=== PATIENT | female | born 1925 | race Caucasian/White ===

== ENCOUNTER 2016-05-21 14:29 | Inpatient (IN) | payer MEDICARE, OTHER ==
[2016-05-21] MEDS ORDERED: LEVOFLOXACIN 750MG-D5W PMX 750 MG in DEXTROSE/WATER 1 150ML.BAG IVPB STA (14:49)
[2016-05-21] MEDS ORDERED: SODIUM CHLORIDE 0.9% 1,000 ML IV STA ×2 (14:49)
[2016-05-21] MEDS ORDERED: SODIUM CHLORIDE 0.9% 500 ML IV STA (14:49)
[2016-05-21] MEDS ORDERED: PIPERACILLIN-TAZOBACTAM 3.375 GM in DEXTROSE/WATER 1 50ML.BAG IVPB STA (14:49)
[2016-05-21 15:06] LABS: Basophils % (A) 0 %; CH 32.1; CHCM 31.7; Eosinophils # (A) 0.1 k/uL (0-0.7); Eosinophils % (A) 0 %; HCT 39.2 % (34.0-46.0); HGB 12.5 gm/dL (11.4-16.0); Luc # (Auto) 0.15; Luc % (Auto) 1; Lymphocytes # (A) 0.8 k/uL (1.0-4.8); Lymphocytes % (A) 5 %; MCH 32.5 pg (25.0-35.0); MCHC 31.8 g/dL (31.0-37.0); Macrocytosis Slight; Mean Platelet Volume 7.3; Monocytes # (A) 0.5 k/uL (0-1.0); Monocytes % (A) 4 %; Neutrophils # (A) 14.1 k/uL (1.3-7.7); Neutrophils % (A) 90 %; RBC 3.84 m/uL (3.80-5.40); WBC 15.7 k/uL (3.8-10.6); WBC (Perox) 15.71
[2016-05-21 15:15] LABS: Calcium 9.3 mg/dL (8.4-10.2); Magnesium 2.6 mg/dL (1.6-2.3); Phosphorous 4.6 mg/dL (2.5-4.5); Total Bilirubin 0.5 mg/dL (0.2-1.3); Total Protein 7.3 g/dL (6.3-8.2)
--- NOTE | 2016-05-21 15:22 | XR ---
EXAMINATION TYPE: XR chest 1V portable DATE OF EXAM: 05/21/2016 3:06 PM COMPARISON: 06/02/2013 HISTORY: Weakness confusion TECHNIQUE: Single frontal view of the chest is obtained. FINDINGS: There is coarse interstitial density in both lungs. There is some mild infiltrate at the l eft lung base. There is no gross heart failure. There are no hilar masses. There are chest leads. IMPRESSION: Moderate pulmonary fibrosis. There is new infiltrate in the left lower lobe compared to last exam. No gross heart failure.
[2016-05-21 15:26] LABS: Creatine Kinase 24 U/L (30-135)
[2016-05-21 15:39] LABS: Creatine Kinase MB 1.2 ng/mL (0.0-2.4); Troponin I <0.012 ng/mL (0.000-0.034)
[2016-05-21 15:43] LABS: Appearance,Urine Clear (Clear); Bacteria,Urine Rare /hpf; Bilirubin,Urine Negative (Negative); Glucose,Urine (UA) Negative (Negative); Ketones,Urine Negative (Negative); Leukocyte Esterase,Urine Trace (Negative); Nitrite,Urine Negative (Negative); Particle Count 4843; Protein,Urine Negative (Negative); RBC,Urine 1 /hpf (0-5); Specific Gravity,Urine 1.011 (1.001-1.035); UA Billing (MACRO vs. MICRO) MICRO; Urobilinogen,Urine <2.0 mg/dL (<2.0); WBC,Urine 4 /hpf (0-5)
[2016-05-21 15:51] LABS: Partial Thromboplastin Time 23.6 sec (22.0-30.0); Prothrombin Time 10.4 sec (9.0-12.0)
[2016-05-21] MEDS ORDERED: IPRATROPIUM-ALBUTEROL 3 ML NEB INHALATION STA (16:08)
[2016-05-21] MEDS ORDERED: PNEUMONIA PROTOCOL UTILIZED 1 EACH MISC PO PRN (16:09)
--- NOTE | 2016-05-21 16:09 | ED ---
General Adult HPI - General Chief complaint: Altered Mental Status Stated complaint: ALTERED MENTAL Time Seen by Provider: 05/21/16 14:41 Source: EMS, RN notes reviewed, old records reviewed Mode of arrival: EMS Limitations: no limitations - History of Present Illness Initial comments: This is an 89-year-old female here for evaluation. This patient presents for evaluation of weakness. Fever. Possible sepsis. Patient had outpatient lab work done that shows severely elevated white count. Patient's poor strain secondary medical mentation and dementia, patient is obtained from EMS, labs, patient chart - Related Data Home Medications Medication Instructions Recorded Confirmed Acetaminophen Tab [Tylenol Tab] 650 mg PO Q6H PRN 05/21/16 05/21/16 Ascorbic Acid [Vitamin C] 500 mg PO HS 05/21/16 05/21/16 Aspirin EC [Ecotrin Low Dose] 81 mg PO BID@0800,1600 05/21/16 05/21/16 Butalb/Asprin/Caff 50-325-40Mg 1 cap PO Q24H PRN 05/21/16 05/21/16 [Fiorinal 50-325-40 MG] Docusate [Colace] 100 mg PO BID PRN 05/21/16 05/21/16 Famotidine [Pepcid] 20 mg PO HS@2000 05/21/16 05/21/16 Ferrous Sulfate [Feosol] 325 mg PO HS 05/21/16 05/21/16 Furosemide [Lasix] 20 mg PO DAILY 05/21/16 05/21/16 Gabapentin [Neurontin] 300 mg PO DAILY 05/21/16 05/21/16 Lidocaine [Lidoderm 5% Patch] 1 patch TRANSDERM DAILY 05/21/16 05/21/16 Losartan-Hctz 50-12.5 mg [Hyzaar 1 tab PO DAILY 05/21/16 05/21/16 50-12.5] Magnesium Hydroxide [Milk of 2,400 mg PO Q8H PRN 05/21/16 05/21/16 Magnesia] Natural Balance Tears Solution 0.4% 1 drop BOTH EYES BID 05/21/16 05/21/16 Potassium Chloride ER [K-Dur 20] 20 meq PO BID 05/21/16 05/21/16 Sennosides [Senna] 8.6 mg PO DAILY 05/21/16 05/21/16 amLODIPine BESYLATE [Norvasc] 2.5 mg PO DAILY 05/21/16 05/21/16 traZODone HCL 50 mg PO HS@2000 05/21/16 05/21/16 Allergies Allergy/AdvReac Type Severity Reaction Status Date / Time No Known Allergies Allergy Verified 05/21/16 14:59 Review of Systems ROS Statement: Those systems with pertinent positive or pertinent negative responses have been documented in the HPI. ROS Other: All systems not noted in ROS Statement are negative. Past Medical History Past Medical History: Dementia, GERD/Reflux, Hypertension, Renal Disease History of Any Multi-Drug Resistant Organisms: Unobtainable Past Surgical History: Unable to Obtain Past Psychological History: Anxiety, Depression Smoking Status: Unknown if ever smoked Past Alcohol Use History: Unable to Obtain Past Drug Use History: Unable to Obtain General Exam Limitations: no limitations, altered mental status General appearance: alert, anxious, lethargic, in distress Head exam: Present: atraumatic, normocephalic, normal inspection Eye exam: Present: normal appearance, PERRL, EOMI. Absent: scleral icterus, conjunctival injection, periorbital swelling ENT exam: Present: normal exam, mucous membranes moist Neck exam: Present: normal inspection. Absent: tenderness, meningismus, lymphadenopathy Respiratory exam: Present: normal lung sounds bilaterally. Absent: respiratory distress, wheezes, rales, rhonchi, stridor Cardiovascular Exam: Present: regular rate, normal rhythm, normal heart sounds. Absent: systolic murmur, diastolic murmur, rubs, gallop, clicks GI/Abdominal exam: Present: soft, normal bowel sounds. Absent: distended, tenderness, guarding, rebound, rigid Extremities exam: Present: normal inspection, full ROM, normal capillary refill. Absent: tenderness, pedal edema, joint swelling, calf tenderness Back exam: Present: normal inspection Neurological exam: Present: alert, oriented X3, CN II-XII intact Psychiatric exam: Present: normal affect, normal mood Skin exam: Present: warm, dry, intact, normal color. Absent: rash Course Vital Signs 05/21/16 05/21/16 05/21/16 14:32 15:05 15:15 Temperature 96.7 F L Pulse Rate 76 100 Respiratory 18 18 Rate Blood Pressure 80/56 84/61 92/51 O2 Sat by Pulse 95 98 Oximetry 05/21/16 05/21/16 15:48 16:16 Temperature Pulse Rate 90 75 Respiratory 18 18 Rate Blood Pressure 91/62 116/61 O2 Sat by Pulse 95 95 Oximetry - Reevaluation(s) Reevaluation #1: 05/21/16 16:28 Medical records and labs further review Reevaluation #2: 05/21/16 16:28 Patient showing clinical improvement with blood pressure and boluses Medical Decision Making - Medical Decision Making 89 ER for evaluation. Patient presented for evaluation of nose clear acquired pneumonia, altered mental status, acute renal failure, sepsis. Patient be admitted with severe pneumonia, hospital-acquired, broad-spectrum antibiotics, IV resuscitation, continued evaluation monitoring of cardiac and pulmonary status, hemodynamic status - Lab Data Result diagrams: 05/21/16 14:57 05/21/16 14:57 Lab Results 05/21/16 05/21/16 05/21/16 Range/Units 14:57 14:57 14:57 WBC 15.7 H (3.8-10.6) k/uL RBC 3.84 (3.80-5.40) m/uL Hgb 12.5 (11.4-16.0) gm/dL Hct 39.2 (34.0-46.0) % MCV 102.0 H (80.0-100.0) fL MCH 32.5 (25.0-35.0) pg MCHC 31.8 (31.0-37.0) g/dL RDW 14.0 (11.5-15.5) % Plt Count 479 H (150-450) k/uL Neutrophils % 90 % Lymphocytes % 5 % Monocytes % 4 % Eosinophils % 0 % Basophils % 0 % Neutrophils # 14.1 H (1.3-7.7) k/uL Lymphocytes # 0.8 L (1.0-4.8) k/uL Monocytes # 0.5 (0-1.0) k/uL Eosinophils # 0.1 (0-0.7) k/uL Basophils # 0.0 (0-0.2) k/uL Macrocytosis Slight PT (9.0-12.0) sec INR (<1.1) APTT (22.0-30.0) sec Sodium 148 H (137-145) mmol/L Potassium 5.0 (3.5-5.1) mmol/L Chloride 111 H (98-107) mmol/L Carbon Dioxide 21 L (22-30) mmol/L Anion Gap 16 mmol/L BUN 89 H* (7-17) mg/dL Creatinine 2.14 H (0.52-1.04) mg/dL Est GFR (MDRD) Af Amer 26 (>60 ml/min/1.73 sqM) Est GFR (MDRD) Non-Af 22 (>60 ml/min/1.73 sqM) Glucose 115 H (74-99) mg/dL Plasma Lactic Acid Vincent (0.7-2.0) mmol/L Calcium 9.3 (8.4-10.2) mg/dL Phosphorus 4.6 H (2.5-4.5) mg/dL Magnesium 2.6 H (1.6-2.3) mg/dL Total Bilirubin 0.5 (0.2-1.3) mg/dL AST 77 H (14-36) U/L ALT 172 H (9-52) U/L Alkaline Phosphatase 271 H (38-126) U/L Total Creatine Kinase 24 L (30-135) U/L CK-MB (CK-2) 1.2 (0.0-2.4) ng/mL CK-MB (CK-2) Rel Index 5.0 Troponin I <0.012 (0.000-0.034) ng/mL NT-Pro-B Natriuret Pep pg/mL Total Protein 7.3 (6.3-8.2) g/dL Albumin 3.5 (3.5-5.0) g/dL TSH 1.560 (0.465-4.680) mIU/L Urine Color Urine Appearance (Clear) Urine pH (5.0-8.0) Ur Specific Bigler (1.001-1.035) Urine Protein (Negative) Urine Glucose (UA) (Negative) Urine Ketones (Negative) Urine Blood (Negative) Urine Nitrate (Negative) Urine Bilirubin (Negative) Urine Urobilinogen (<2.0) mg/dL Ur Leukocyte Esterase (Negative) Urine RBC (0-5) /hpf Urine WBC (0-5) /hpf Urine Bacteria (None) /hpf Hyaline Casts (0-2) /lpf Influenza Type A RNA (Not Detectd) Influenza Type B (PCR) (Not Detectd) 05/21/16 05/21/16 05/21/16 Range/Units 14:57 14:57 14:57 WBC (3.8-10.6) k/uL RBC (3.80-5.40) m/uL Hgb (11.4-16.0) gm/dL Hct (34.0-46.0) % MCV (80.0-100.0) fL MCH (25.0-35.0) pg MCHC (31.0-37.0) g/dL RDW (11.5-15.5) % Plt Count (150-450) k/uL Neutrophils % % Lymphocytes % % Monocytes % % Eosinophils % % Basophils % % Neutrophils # (1.3-7.7) k/uL Lymphocytes # (1.0-4.8) k/uL Monocytes # (0-1.0) k/uL Eosinophils # (0-0.7) k/uL Basophils # (0-0.2) k/uL Macrocytosis PT 10.4 (9.0-12.0) sec INR 1.0 (<1.1) APTT 23.6 (22.0-30.0) sec Sodium (137-145) mmol/L Potassium (3.5-5.1) mmol/L Chloride (98-107) mmol/L Carbon Dioxide (22-30) mmol/L Anion Gap mmol/L BUN (7-17) mg/dL Creatinine (0.52-1.04) mg/dL Est GFR (MDRD) Af Amer (>60 ml/min/1.73 sqM) Est GFR (MDRD) Non-Af (>60 ml/min/1.73 sqM) Glucose (74-99) mg/dL Plasma Lactic Acid Vincent 1.3 (0.7-2.0) mmol/L Calcium (8.4-10.2) mg/dL Phosphorus (2.5-4.5) mg/dL Magnesium (1.6-2.3) mg/dL Total Bilirubin (0.2-1.3) mg/dL AST (14-36) U/L ALT (9-52) U/L Alkaline Phosphatase (38-126) U/L Total Creatine Kinase (30-135) U/L CK-MB (CK-2) (0.0-2.4) ng/mL CK-MB (CK-2) Rel Index Troponin I (0.000-0.034) ng/mL NT-Pro-B Natriuret Pep 1100 pg/mL Total Protein (6.3-8.2) g/dL Albumin (3.5-5.0) g/dL TSH (0.465-4.680) mIU/L Urine Color Urine Appearance (Clear) Urine pH (5.0-8.0) Ur Specific Bigler (1.001-1.035) Urine Protein (Negative) Urine Glucose (UA) (Negative) Urine Ketones (Negative) Urine Blood (Negative) Urine Nitrate (Negative) Urine Bilirubin (Negative) Urine Urobilinogen (<2.0) mg/dL Ur Leukocyte Esterase (Negative) Urine RBC (0-5) /hpf Urine WBC (0-5) /hpf Urine Bacteria (None) /hpf Hyaline Casts (0-2) /lpf Influenza Type A RNA (Not Detectd) Influenza Type B (PCR) (Not Detectd) 05/21/16 05/21/16 Range/Units 15:18 15:29 WBC (3.8-10.6) k/uL RBC (3.80-5.40) m/uL Hgb (11.4-16.0) gm/dL Hct (34.0-46.0) % MCV (80.0-100.0) fL MCH (25.0-35.0) pg MCHC (31.0-37.0) g/dL RDW (11.5-15.5) % Plt Count (150-450) k/uL Neutrophils % % Lymphocytes % % Monocytes % % Eosinophils % % Basophils % % Neutrophils # (1.3-7.7) k/uL Lymphocytes # (1.0-4.8) k/uL Monocytes # (0-1.0) k/uL Eosinophils # (0-0.7) k/uL Basophils # (0-0.2) k/uL Macrocytosis PT (9.0-12.0) sec INR (<1.1) APTT (22.0-30.0) sec Sodium (137-145) mmol/L Potassium (3.5-5.1) mmol/L Chloride (98-107) mmol/L Carbon Dioxide (22-30) mmol/L Anion Gap mmol/L BUN (7-17) mg/dL Creatinine (0.52-1.04) mg/dL Est GFR (MDRD) Af Amer (>60 ml/min/1.73 sqM) Est GFR (MDRD) Non-Af (>60 ml/min/1.73 sqM) Glucose (74-99) mg/dL Plasma Lactic Acid Vincent (0.7-2.0) mmol/L Calcium (8.4-10.2) mg/dL Phosphorus (2.5-4.5) mg/dL Magnesium (1.6-2.3) mg/dL Total Bilirubin (0.2-1.3) mg/dL AST (14-36) U/L ALT (9-52) U/L Alkaline Phosphatase (38-126) U/L Total Creatine Kinase (30-135) U/L CK-MB (CK-2) (0.0-2.4) ng/mL CK-MB (CK-2) Rel Index Troponin I (0.000-0.034) ng/mL NT-Pro-B Natriuret Pep pg/mL Total Protein (6.3-8.2) g/dL Albumin (3.5-5.0) g/dL TSH (0.465-4.680) mIU/L Urine Color Yellow Urine Appearance Clear (Clear) Urine pH 5.0 (5.0-8.0) Ur Specific Bigler 1.011 (1.001-1.035) Urine Protein Negative (Negative) Urine Glucose (UA) Negative (Negative) Urine Ketones Negative (Negative) Urine Blood Negative (Negative) Urine Nitrate Negative (Negative) Urine Bilirubin Negative (Negative) Urine Urobilinogen <2.0 (<2.0) mg/dL Ur Leukocyte Esterase Trace H (Negative) Urine RBC 1 (0-5) /hpf Urine WBC 4 (0-5) /hpf Urine Bacteria Rare H (None) /hpf Hyaline Casts 1 (0-2) /lpf Influenza Type A RNA Not Detected (Not Detectd) Influenza Type B (PCR) Not Detected (Not Detectd) - Radiology Data Radiology results: report reviewed (Chest x-ray 2 view positive for pneumonia), image reviewed Critical Care Time Critical Care Time: Yes Total Critical Care Time: 31 Disposition Clinical Impression: Altered mental status, Delirium due to general medical condition, Nosocomial pneumonia, Sepsis Disposition: ADMITTED IP TO THIS HOSP Condition: Serious
[2016-05-21] MEDS: SODIUM CHLORIDE 0.9% 1,000 ML IV SCH ×2 (16:52→22:40)
[2016-05-21] MEDS ORDERED: BUTALB/APAP/CAFF 50-325-40MG TAB PO PRN (23:01)
[2016-05-21] MEDS ORDERED: DOCUSATE 100 MG CAP PO PRN (23:01)
[2016-05-21] MEDS ORDERED: ACETAMINOPHEN TAB 325 MG TAB PO PRN (23:01)
[2016-05-21] MEDS ORDERED: MAGNESIUM HYDROXIDE 2,400 MG/10 ML CUP PO PRN (23:01)
[2016-05-22] MEDS: PIPERACILLIN-TAZOBACTAM 3.375 GM in DEXTROSE/WATER 1 50ML.BAG IVPB SCH ×3 (00:05→22:02)
[2016-05-22] MEDS: IPRATROPIUM-ALBUTEROL 3 ML NEB INHALATION SCH ×5 (03:30→20:36)
[2016-05-22] MEDS: SODIUM CHLORIDE 0.9% 1,000 ML IV SCH ×3 (04:57→13:52)
--- NOTE | 2016-05-22 07:18 | XR ---
EXAMINATION TYPE: XR chest 2V DATE OF EXAM: 05/22/2016 6:23 AM COMPARISON: 05/21/2016 HISTORY: Shortness of breath TECHNIQUE: Frontal and lateral views of the chest are obtained. FINDINGS: Scattered senescent parenchymal changes noted. Hyperinflation compatible with COPD. There is progressive left perihilar infiltrate. Small left-sided effusion. Heart size is stable. Mediastinal structures are stable and grossly unremarkable. No evidence for hilar prominence. Degenerative changes dorsal spine. IMPRESSION: 1. There is progressive left perihilar infiltrate. Small left-sided effusion.
[2016-05-22] MEDS ORDERED: ENOXAPARIN 40 MG/0.4 ML SYRINGE SQ SCH (09:00)
[2016-05-22] MEDS: POTASSIUM CHLORIDE ER 20 MEQ TAB.ER PO SCH ×2 (09:17→19:58)
[2016-05-22] MEDS: ARTIFICIAL TEARS-HYPROMELLOSE DROPS 15 ML BTL BOTH EYES SCH ×2 (09:17→19:58)
[2016-05-22] MEDS: SENNOSIDES 8.6 MG TAB PO SCH (09:17)
[2016-05-22] MEDS: GABAPENTIN 300 MG CAP PO SCH (09:17)
[2016-05-22] MEDS: ASPIRIN 81 MG CHEW PO SCH ×2 (09:17→16:20)
[2016-05-22] MEDS: LOSARTAN-HCTZ 50-12.5 MG 1 EACH TAB PO SCH (09:18)
[2016-05-22] MEDS: ENOXAPARIN 30 MG/0.3 ML SYRINGE SQ SCH (09:18)
--- NOTE | 2016-05-22 10:13 | P.CRDCN ---
History of Present Illness Consult date: 05/22/16 Requesting physician: Bryn Clay Consult reason: atrial fibrillation Chief complaint: Mental status changes, short of breath, sepsis History of present illness: This is an 89-year-old female who resides at [facility], she is unsure exactly of November she was brought into the hospital. According to the EMS note, they were called because of possible sepsis, and noted mental status changes. Patient was also noted to have elevated white blood cell count as an outpatient , and she has not been drinking or eating much in the past number of days. Chest x-ray on admission revealed moderate pulmonary fibrosis with a new infiltrate in the left lower lobe. Repeat chest x-ray this morning did reveal progressive left perihilar infiltrate with a small left-sided effusion. EKG on admission showed atrial fibrillation with a controlled ventricular response. Lab data, WBC 15.7, hemoglobin 12.5. Potassium 5.0, sodium 148, BUN 89, creatinine 2.1. Magnesium level is 2.6. AST 77, ALT 172, alk phos 271. Troponin 0.012, BNP 1100. Patient has been afebrile, blood pressure 80/56 on admission, 95% on 2 L of oxygen. Patient is currently receiving enoxaparin 30 mg subcu daily, IV antibiotics also been initiated for pneumonia. She is also receiving IV fluids at 100 mL per hour. Patient's home medications have been reviewed, which suggests that the patient does have a prior history of hypertension, on review of prior lab data, patient also has had renal insufficiency in the past. According to penitentiary documentation, patient has chronic persistent atrial fibrillation. Past Medical History Past Medical History: Dementia, GERD/Reflux, Hypertension, Renal Disease History of Any Multi-Drug Resistant Organisms: Unobtainable Past Surgical History: Unable to Obtain Past Anesthesia/Blood Transfusion Reactions: No Reported Reaction Past Psychological History: Anxiety, Depression Smoking Status: Unknown if ever smoked Past Alcohol Use History: Unable to Obtain Past Drug Use History: Unable to Obtain Medications and Allergies Home Medications Medication Instructions Recorded Confirmed Type Acetaminophen Tab [Tylenol Tab] 650 mg PO Q6H PRN 05/21/16 05/21/16 History Ascorbic Acid [Vitamin C] 500 mg PO HS 05/21/16 05/21/16 History Aspirin EC [Ecotrin Low Dose] 81 mg PO BID@0800,1600 05/21/16 05/21/16 History Butalb/Asprin/Caff 50-325-40Mg 1 cap PO Q24H PRN 05/21/16 05/21/16 History [Fiorinal 50-325-40 MG] Docusate [Colace] 100 mg PO BID PRN 05/21/16 05/21/16 History Famotidine [Pepcid] 20 mg PO HS@199905/21/16 05/21/16 History Ferrous Sulfate [Feosol] 325 mg PO HS 05/21/16 05/21/16 History Furosemide [Lasix] 20 mg PO DAILY 05/21/16 05/21/16 History Gabapentin [Neurontin] 300 mg PO DAILY 05/21/16 05/21/16 History Lidocaine [Lidoderm 5% Patch] 1 patch TRANSDERM DAILY 05/21/16 05/21/16 History Losartan-Hctz 50-12.5 mg [Hyzaar 1 tab PO DAILY 05/21/16 05/21/16 History 50-12.5] Magnesium Hydroxide [Milk of 2,400 mg PO Q8H PRN 05/21/16 05/21/16 History Magnesia] Natural Balance Tears Solution 0.4% 1 drop BOTH EYES BID 05/21/16 05/21/16 History Potassium Chloride ER [K-Dur 20] 20 meq PO BID 05/21/16 05/21/16 History Sennosides [Senna] 8.6 mg PO DAILY 05/21/16 05/21/16 History amLODIPine BESYLATE [Norvasc] 2.5 mg PO DAILY 05/21/16 05/21/16 History traZODone HCL 50 mg PO HS@199905/21/16 05/21/16 History Allergies Allergy/AdvReac Type Severity Reaction Status Date / Time No Known Allergies Allergy Verified 05/21/16 14:59 Physical Exam Vitals: Vital Signs Temp Pulse Pulse Resp BP BP Pulse Ox 05/22/16 09:36 97.6 F 106 H 16 102/61 98 05/22/16 08:49 82 05/22/16 08:39 82 05/22/16 04:00 97.7 F 103 H 18 92/70 97 05/22/16 00:00 97.7 F 98 18 101/69 97 05/21/16 22:00 97.0 F L 102 H 18 99/65 95 05/21/16 20:00 97.0 F L 102 H 18 99/65 95 05/21/16 18:50 96.9 F L 101 H 20 90/48 97 05/21/16 18:08 72 18 93/54 95 05/21/16 17:30 99 18 93/52 96 05/21/16 16:54 88 18 94/50 96 05/21/16 16:23 80 05/21/16 16:16 75 18 116/61 95 Intake and Output 05/21/16 05/22/16 05/22/16 22:59 06:59 14:59 Intake Total 25 Output Total 200 300 Balance -200 -300 25 Intake: Oral 25 Output: Urine 200 300 Other: Weight 58.967 kg 53.3 kg PHYSICAL EXAMINATION: HEENT: [Head is atraumatic, normocephalic. Pupils equal, round. Neck is supple. There is no elevated jugular venous pressure.] HEART EXAMINATION: Heart S1 and S2 irregular irregular systolic murmur is heard. CHEST EXAMINATION:[ Lungs are clear to auscultation and precussion. No chest wall tenderness is noted on palpation or with deep breathing.] ABDOMEN: [ Soft, nontender. Bowel sounds are heard. No organomegaly noted]. EXTREMITIES:[ 2+ peripheral pulses with evidence of peripheral edema and no calf tenderness noted]. NEUROLOGIC [patient is awake, alert , confused. Results 05/21/16 14:57 05/21/16 14:57 Current Medications Generic Name Dose Route Start Last Admin Trade Name Freq PRN Reason Stop Dose Admin Acetaminophen 650 mg 05/21/16 23:01 Tylenol Tab PO Q6H PRN Pain Acetaminophen/Butalbital/Caffeine 1 each 05/21/16 23:01 Fioricet 50-325-40 PO Q24H PRN Migraine Headache Albuterol/Ipratropium 3 ml 05/21/16 20:00 05/22/16 08:39 Duoneb 0.5 Mg-3 Mg/3 Ml Soln INHALATION 3 ml RT-QID AIDA Administration Artificial Tears 1 drops 05/22/16 09:00 05/22/16 09:17 Artificial Tear Drops BOTH EYES 1 drops BID AIDA Administration Ascorbic Acid 500 mg 05/22/16 21:00 Vitamin C PO HS AIDA Aspirin 81 mg 05/22/16 08:00 05/22/16 09:17 Aspirin PO 81 mg BID@0800,1600 AIDA Administration Docusate Sodium 100 mg 05/21/16 23:01 Colace PO BID PRN Constipation Enoxaparin Sodium 30 mg 05/22/16 09:00 05/22/16 09:18 Lovenox SQ 30 mg DAILY AIDA Administration Famotidine 20 mg 05/22/16 20:00 Pepcid PO HS@2000 [facility] Ferrous Sulfate 325 mg 05/22/16 21:00 Feosol PO HS [facility] Gabapentin 300 mg 05/22/16 09:00 05/22/16 09:17 Neurontin PO 300 mg DAILY AIDA Administration HCTZ/Losartan Potassium 1 each 05/22/16 09:00 05/22/16 09:18 Hyzaar 50-12.5 PO 1 each DAILY AIDA Administration Sodium Chloride 1,000 mls @ 200 mls/hr 05/21/16 16:15 05/22/16 06:46 Saline 0.9% IV 200 mls/hr .Q5H AIDA Administration Piperacillin/Tazobactam/ 50 mls @ 12.5 mls/hr 05/22/16 21:00 Dextrose 3.375 gm/ IV Solution IVPB 06/01/16 00:00 Q12H AIDA Levofloxacin 500 mg/ IV 100 mls @ 100 mls/hr 05/22/16 20:00 Solution IVPB 06/03/16 23:00 Q48H AIDA Magnesium Hydroxide 2,400 mg 05/21/16 23:01 Milk Of Magnesia PO Q8H PRN Constipation Miscellaneous Information 1 each 05/21/16 16:09 Pneumonia Protocol Utilized PO ONCE PRN Per Protocol Potassium Chloride 20 meq 05/22/16 09:00 05/22/16 09:17 K-Dur 20 PO 20 meq BID AIDA Administration Senna 8.6 mg 05/22/16 09:00 05/22/16 09:17 Senokot PO 8.6 mg DAILY AIDA Administration Trazodone HCl 50 mg 05/22/16 20:00 Desyrel PO HS@2000 [facility] Intake and Output 05/21/16 05/22/16 05/22/16 22:59 06:59 14:59 Intake Total 25 Output Total 200 300 Balance -200 -300 25 Intake: Oral 25 Output: Urine 200 300 Other: Weight 58.967 kg 53.3 kg EKG Interpretations (text) EKG shows atrial fibrillation with a controlled ventricular response. Assessment and Plan Plan: Assessment and plan #1 mental status changes, rule out sepsis. White blood cell Count 15.7. #2 possible pneumonia, patient currently on IV antibiotics. #3 chronic persistent atrial fibrillation, rate under adequate control. Patient has known history of chronic atrial fibrillation, not on anticoagulation. #4 history of hypertension #5 dementia #6 acute on chronic renal insufficiency, could be secondary at this time to dehydration. #7 elevated liver functions #8 possible congestive cardiac failure, BNP level is 1100. Unsure of LV function at this time. Plan We will continue baby aspirin daily, continue Lovenox. Obtain echocardiogram with Doppler study. Continue IV antibiotics as well as IV hydration. Further recommendations to follow. DNP note has been reviewed, I agree with a documented findings and plan of care. Patient was seen and examined.
--- NOTE | 2016-05-22 11:51 | ECHOF ---
Referral Reason:afib MEASUREMENTS -------- HEIGHT: 160.0 cm WEIGHT: 53.1 kg BP: 102/61 IVSd: 1.0 cm (0.6 - 1.1) LVIDd: 3.0 cm (3.9 - 5.3) LVPWd: 1.2 cm (0.6 - 1.1) IVSs: 1.4 cm LVIDs: 2.1 cm LVPWs: 1.3 cm Ao Diam: 3.4 cm (2.0 - 3.7) AV Cusp: 1.4 cm (1.5 - 2.6) LA Diam: 3.2 cm (2.7 - 3.8) MV E Gerson: 0.76 m/s MV DecT: 126 ms MV A Gerson: 1.07 m/s MV E/A Ratio: 0.71 AV maxP.87 mmHg AV meanP.07 mmHg RAP: 5.00 mmHg RVSP: 21.85 mmHg FINDINGS -------- Atrial fibrillation. This was a technically good study. There is borderline concentric left ventricular hypertrophy. Overall left ventricular systolic function is low-normal with, an EF between 50 - 55 %. The right ventricle is normal in size and function. The left atrium is normal in size. The right atrium is normal in size. Aortic valve is trileaflet and is moderately thickened. There is mild aortic stenosis present. Peak/mean gradient across the Aortic Valve is 13.87mmHg / 8.07mmHg. The mitral valve leaflets are mildly thickened. Mild mitral annular calcification present. Mild mitral regurgitation is present. Mild tricuspid regurgitation present. The right ventricular systolic pressure, as measured by Doppler, is 21.85mmHg. Pulmonic valve appears structurally normal. The pericardium is normal. CONCLUSIONS -------- 1. Atrial fibrillation. 2. Peak/mean gradient across the Aortic Valve is 13.87mmHg / 8.07mmHg. 3. The mitral valve leaflets are mildly thickened. 4. Mild mitral annular calcification present. 5. Mild mitral regurgitation is present. 6. Mild tricuspid regurgitation present. 7. The right ventricular systolic pressure, as measured by Doppler, is 21.85mmHg. 8. Pulmonic valve appears structurally normal. 9. The pericardium is normal. 10. This was a technically good study. 11. There is borderline concentric left ventricular hypertrophy. 12. Overall left ventricular systolic function is low-normal with, an EF between 50 - 55 %. 13. The right ventricle is normal in size and function. 14. The left atrium is normal in size. 15. The right atrium is normal in size. 16. Aortic valve is trileaflet and is moderately thickened. 17. There is mild aortic stenosis present. CHIEF NURSING EXECUTIVE: Amparo Teixeira RDCS
[2016-05-22 11:57] VITALS: BMI 20.8
--- NOTE | 2016-05-22 14:20 | P.CNPUL ---
History of Present Illness Consult date: 05/22/16 Reason for consult: pneumonia Chief complaint: Pneumonia History of present illness: This is an 89-year-old female who resides at [facility]. According to the EMS note, they were called because of possible sepsis, and noted mental status changes. Patient was also noted to have elevated white blood cell count as an outpatient, and she has not been drinking or eating much in the past number of days. Chest x-ray on admission revealed moderate pulmonary fibrosis with a new infiltrate in the left lower lobe. Repeat chest x-ray this morning did reveal progressive left perihilar infiltrate with a small left-sided effusion. EKG on admission showed atrial fibrillation with a controlled ventricular response. Lab data, WBC 15.7, hemoglobin 12.5. Potassium 5.0, sodium 148, BUN 89, creatinine 2.1. Magnesium level is 2.6. AST 77, ALT 172, alk phos 271. Troponin 0.012, BNP 1100. Patient has been afebrile, blood pressure 80/56 on admission, 95% on 2 L of oxygen. No reported nausea or vomiting or abdominal pain. No witnessed aspiration. No documented fever. No seizure. No loss in consciousness. The patient was started on a combination of Zosyn and Levaquin. Clinically much more alert on today's evaluation. Review of Systems For review of system was done. I talked to her nephew, Rodrigo, who updated me on her condition. The patient has been in detention resident for the past 3 years at least. Past Medical History Past Medical History: Dementia, GERD/Reflux, Hypertension, Renal Disease Additional Past Medical History / Comment(s): The patient is a detention resident. She has kyphoscoliosis of the chest. She has history of emphysema/ COPD in addition to dementia and possibly chronic renal insufficiency. Her baseline creatinine is not known to me at this point. 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 No substance abuse. No alcoholism.) Past Alcohol Use History: Unable to Obtain Past Drug Use History: None Reported Medications and Allergies Home Medications Medication Instructions Recorded Confirmed Type Acetaminophen Tab [Tylenol Tab] 650 mg PO Q6H PRN 05/21/16 05/21/16 History Ascorbic Acid [Vitamin C] 500 mg PO HS 05/21/16 05/21/16 History Aspirin EC [Ecotrin Low Dose] 81 mg PO BID@0800,1600 05/21/16 05/21/16 History Butalb/Asprin/Caff 50-325-40Mg 1 cap PO Q24H PRN 05/21/16 05/21/16 History [Fiorinal 50-325-40 MG] Docusate [Colace] 100 mg PO BID PRN 05/21/16 05/21/16 History Famotidine [Pepcid] 20 mg PO HS@199905/21/16 05/21/16 History Ferrous Sulfate [Feosol] 325 mg PO HS 05/21/16 05/21/16 History Furosemide [Lasix] 20 mg PO DAILY 05/21/16 05/21/16 History Gabapentin [Neurontin] 300 mg PO DAILY 05/21/16 05/21/16 History Lidocaine [Lidoderm 5% Patch] 1 patch TRANSDERM DAILY 05/21/16 05/21/16 History Losartan-Hctz 50-12.5 mg [Hyzaar 1 tab PO DAILY 05/21/16 05/21/16 History 50-12.5] Magnesium Hydroxide [Milk of 2,400 mg PO Q8H PRN 05/21/16 05/21/16 History Magnesia] Natural Balance Tears Solution 0.4% 1 drop BOTH EYES BID 05/21/16 05/21/16 History Potassium Chloride ER [K-Dur 20] 20 meq PO BID 05/21/16 05/21/16 History Sennosides [Senna] 8.6 mg PO DAILY 05/21/16 05/21/16 History amLODIPine BESYLATE [Norvasc] 2.5 mg PO DAILY 05/21/16 05/21/16 History traZODone HCL 50 mg PO HS@199905/21/16 05/21/16 History Allergies Allergy/AdvReac Type Severity Reaction Status Date / Time No Known Allergies Allergy Verified 05/21/16 14:59 Physical Exam Vitals: Vital Signs Temp Pulse Pulse Resp BP BP Pulse Ox 05/22/16 11:34 18 05/22/16 09:36 97.6 F 106 H 16 102/61 98 05/22/16 08:49 82 05/22/16 08:39 82 05/22/16 04:00 97.7 F 103 H 18 92/70 97 05/22/16 00:00 97.7 F 98 18 101/69 97 05/21/16 22:00 97.0 F L 102 H 18 99/65 95 05/21/16 20:00 97.0 F L 102 H 18 99/65 95 05/21/16 18:50 96.9 F L 101 H 20 90/48 97 05/21/16 18:08 72 18 93/54 95 05/21/16 17:30 99 18 93/52 96 05/21/16 16:54 88 18 94/50 96 05/21/16 16:23 80 05/21/16 16:16 75 18 116/61 95 Intake and Output 05/21/16 05/22/16 05/22/16 22:59 06:59 14:59 Intake Total 25 Output Total 200 300 Balance -200 -300 25 Intake: Oral 25 Output: Urine 200 300 Other: Weight 58.967 kg 53.3 kg 53.3 kg Patient Weight 05/23/16 06:59 Weight 53.3 kg Head exam was generally normal. There was no scleral icterus or corneal arcus. Mucous membranes were moist.Neck was supple and without jugular venous distension, thyromegaly, or carotid bruits. Carotids were easily palpable bilaterally. There was no adenopathy. The patient's chest is kyphoscoliotic and in addition to that there is diminished breath sounds and scattered crackles in the left lung base more so compared to right.Cardiac exam revealed the PMI to be normally situated and sized. The rhythm was regular and no extrasystoles were noted during several minutes of auscultation. The first and second heart sounds were normal and physiologic splitting of the second heart sound was noted. There were no murmurs, rubs, clicks, or gallops.Abdominal exam revealed normal bowel sounds. The abdomen was soft, non-tender, and without masses, organomegaly, or appreciable enlargement of the abdominal aorta. 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 There is no cyanosis or clubbing at this point. Results - Laboratory Findings CBC and BMP: 05/21/16 14:57 05/21/16 14:57 PT/INR, D-dimer PT 10.4 sec (9.0-12.0) 05/21/16 14:57 INR 1.0 (<1.1) 05/21/16 14:57 - Diagnostic Findings Chest x-ray: image reviewed Assessment and Plan Plan: Assessment 1 left lower lobe/perihilar pneumonia. Rule out aspiration pneumonia. Rule out nursing more acquired pneumonia. Currently the patient is on a combination of Zosyn and Levaquin. 2 change in mental status secondary to left lung pneumonia, improving. The patient is underlying baseline dementia. 3 generalized weakness and lethargy and change in mental status secondary to above 4 COPD 5 kyphoscoliosis of the chest 6 chronic renal failure. Baseline creatinine is not known 7 hypertension 8 dementia 9 detention resident 10 previous orthopedic surgery involving bilateral hip replacement Plan Aspiration precaution. Swallow evaluation at the bedside by speech pathology. Continue Zosyn and Levaquin. Change IV fluids to half-normal saline at the rate of 75 mL an hour. Monitor the chest x-ray. Monitor renal function. We' ll continue to follow.
--- NOTE | 2016-05-22 15:00 | P.HPIM ---
History of Present Illness H&P Date: 05/21/16 Chief Complaint: Shortness of breath 89-year-old female who lives at an [facility] facility [facility] ramos was transferred via EMS system care providers noted the patient to be confused decreased mentation different from baseline. Was also noted the patient had an elevated white count in the outpatient setting. Patient reportedly was not drinking or eating much. Chest x-ray on admission did show moderate pulmonary fibrosis. Chest x-ray also showed a new infiltrate involving the left lower lobe of the lung. Patient does have a history of dementia but no behavior changes given the above clinical presentation care providers at the [facility] facility transferred patient for the above-mentioned symptoms patient was started on IV antibiotic in the form of Levaquin and Zosyn for treatment of the left lower lobe pneumonia rule out aspiration pneumonia rule out [facility] acquired pneumonia the combination of Zosyn and Levaquin should adequately provide coverage. It was noted in the emergency room patient was hypotensive the blood pressure was 80/56 with a white count with a left shift 15.7 patient was noted to be anxious lethargic different from baseline suspect sepsis due to left lower lobe pneumonia as indicated on a chest x-ray. Patient's hypotensive episode in the emergency room was treated with an IV fluid bolus in which the blood pressure did respond Review of Systems Not able to adequately obtain patient is a poor historian Past Medical History Past Medical History: Dementia, GERD/Reflux, Hypertension, Renal Disease Additional Past Medical History / Comment(s): The patient is a [facility] resident. She has kyphoscoliosis of the chest. She has history of emphysema/ COPD in addition to dementia and possibly chronic renal insufficiency. Her baseline creatinine is not known to me at this point. 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 No substance abuse. No alcoholism.) Past Alcohol Use History: Unable to Obtain Past Drug Use History: None Reported Medications and Allergies Home Medications Medication Instructions Recorded Confirmed Type Acetaminophen Tab [Tylenol Tab] 650 mg PO Q6H PRN 05/21/16 05/21/16 History Ascorbic Acid [Vitamin C] 500 mg PO HS 05/21/16 05/21/16 History Aspirin EC [Ecotrin Low Dose] 81 mg PO BID@0800,1600 05/21/16 05/21/16 History Butalb/Asprin/Caff 50-325-40Mg 1 cap PO Q24H PRN 05/21/16 05/21/16 History [Fiorinal 50-325-40 MG] Docusate [Colace] 100 mg PO BID PRN 05/21/16 05/21/16 History Famotidine [Pepcid] 20 mg PO HS@199905/21/16 05/21/16 History Ferrous Sulfate [Feosol] 325 mg PO HS 05/21/16 05/21/16 History Furosemide [Lasix] 20 mg PO DAILY 05/21/16 05/21/16 History Gabapentin [Neurontin] 300 mg PO DAILY 05/21/16 05/21/16 History Lidocaine [Lidoderm 5% Patch] 1 patch TRANSDERM DAILY 05/21/16 05/21/16 History Losartan-Hctz 50-12.5 mg [Hyzaar 1 tab PO DAILY 05/21/16 05/21/16 History 50-12.5] Magnesium Hydroxide [Milk of 2,400 mg PO Q8H PRN 05/21/16 05/21/16 History Magnesia] Natural Balance Tears Solution 0.4% 1 drop BOTH EYES BID 05/21/16 05/21/16 History Potassium Chloride ER [K-Dur 20] 20 meq PO BID 05/21/16 05/21/16 History Sennosides [Senna] 8.6 mg PO DAILY 05/21/16 05/21/16 History amLODIPine BESYLATE [Norvasc] 2.5 mg PO DAILY 05/21/16 05/21/16 History traZODone HCL 50 mg PO HS@199905/21/16 05/21/16 History Allergies Allergy/AdvReac Type Severity Reaction Status Date / Time No Known Allergies Allergy Verified 05/21/16 14:59 Physical Exam Vitals: Vital Signs Temp Pulse Pulse Resp BP BP Pulse Ox 05/22/16 11:34 18 05/22/16 09:36 97.6 F 106 H 16 102/61 98 05/22/16 08:49 82 05/22/16 08:39 82 05/22/16 04:00 97.7 F 103 H 18 92/70 97 05/22/16 00:00 97.7 F 98 18 101/69 97 05/21/16 22:00 97.0 F L 102 H 18 99/65 95 05/21/16 20:00 97.0 F L 102 H 18 99/65 95 05/21/16 18:50 96.9 F L 101 H 20 90/48 97 05/21/16 18:08 72 18 93/54 95 05/21/16 17:30 99 18 93/52 96 05/21/16 16:54 88 18 94/50 96 05/21/16 16:23 80 05/21/16 16:16 75 18 116/61 95 Intake and Output 05/21/16 05/22/16 05/22/16 22:59 06:59 14:59 Intake Total 25 Output Total 200 300 Balance -200 -300 25 Intake: Oral 25 Output: Urine 200 300 Other: Weight 58.967 kg 53.3 kg 53.3 kg Patient Weight 05/23/16 06:59 Weight 53.3 kg Physical exam 89-year-old female currently resting in bed pleasant cooperative follow simple commands oriented to person with prompting can recall place no recall of event Lungs bilateral diminished at the bases left greater than the right no audible wheezing noted nasal cannula on 2 L sats are 95% no cough noted Heart S1-S2 audible and regular no murmur Abdomen soft nontender no palpable organomegaly no nausea vomiting Extremities prior habitation the toes on the left foot. No edema noted bilaterally. Results CBC & Chem 7: 05/23/16 11:30 05/23/16 10:05 Thrombosis Risk Factor Assmnt - Choose All That Apply Any of the Below Risk Factors Present?: No Other Risk Factors: Yes Each Risk Factor Represents 3 Points: Age 75 years or older Thrombosis Risk Factor Assessment Total Risk Factor Score: 3 Thrombosis Risk Factor Assessment Level: Moderate Risk Assessment and Plan Plan: Impression Present on admission acute encephalopathy suspect metabolic Present on admission chest x-ray suggests left lower lobe pneumonia Physical debility suspect chronic Generalized weakness decreased endurance suspect chronic COPD no evidence of exacerbation Advanced directives indicating no CODE STATUS Chronic renal failure suspect stage II Present on admission clinical dehydration Baseline dementia with no behavior disturbance Present on admission hypotensive leukocytosis altered mental status suspect sepsis due to left lower lobe pneumonia Plan Continue with recommendations by pulmonology service IV antibiotics as ordered Levaquin and Zosyn PT OT eval DVT and GI prophylaxis Aspiration precautions repeat swallow eval Further recommendations pending will follow IV hydration currently at 75 mL an hour The above dictated assessment and findings were discussed with dr hernandes Impression and the plan of care have been dictated as directed. Umm Oakley nurse practitioner acting as a scribe for dr hernandes
[2016-05-22] MEDS ORDERED: LEVOFLOXACIN 750MG-D5W PMX 750 MG in DEXTROSE/WATER 1 150ML.BAG IVPB SCH (16:00)
[2016-05-22] MEDS: SODIUM CHLORIDE 0.45% 1,000 ML IV SCH (16:20)
--- NOTE | 2016-05-22 18:14 | P.NPCON ---
History of Present Illness - Reason for Consult Consult date: 05/22/16 acute renal failure - Chief Complaint SOB with ARASELI - History of Present Illness This is 89-year-old [facility] resident who was brought in because of shortness of breath. Patient not a good historian although he remembers some details. She denies any fever chills cough expectoration. Denies any chest pain. No nausea vomiting diarrhea abdominal pain. She is cc BUN not eating well for the last 1 month but unable to tell me that she hasn't lost any weight. She is known with hypertension chronic kidney disease COPD dementia. Past Medical History Past Medical History: Dementia, GERD/Reflux, Hypertension, Renal Disease Additional Past Medical History / Comment(s): The patient is a [facility] resident. She has kyphoscoliosis of the chest. She has history of emphysema/ COPD in addition to dementia and possibly chronic renal insufficiency. Her baseline creatinine is not known to me at this point. 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 No substance abuse. No alcoholism.) Past Alcohol Use History: Unable to Obtain Past Drug Use History: None Reported Medications and Allergies Home Medications Medication Instructions Recorded Confirmed Type Acetaminophen Tab [Tylenol Tab] 650 mg PO Q6H PRN 05/21/16 05/21/16 History Ascorbic Acid [Vitamin C] 500 mg PO HS 05/21/16 05/21/16 History Aspirin EC [Ecotrin Low Dose] 81 mg PO BID@0800,1600 05/21/16 05/21/16 History Butalb/Asprin/Caff 50-325-40Mg 1 cap PO Q24H PRN 05/21/16 05/21/16 History [Fiorinal 50-325-40 MG] Docusate [Colace] 100 mg PO BID PRN 05/21/16 05/21/16 History Famotidine [Pepcid] 20 mg PO HS@199905/21/16 05/21/16 History Ferrous Sulfate [Feosol] 325 mg PO HS 05/21/16 05/21/16 History Furosemide [Lasix] 20 mg PO DAILY 05/21/16 05/21/16 History Gabapentin [Neurontin] 300 mg PO DAILY 05/21/16 05/21/16 History Lidocaine [Lidoderm 5% Patch] 1 patch TRANSDERM DAILY 05/21/16 05/21/16 History Losartan-Hctz 50-12.5 mg [Hyzaar 1 tab PO DAILY 05/21/16 05/21/16 History 50-12.5] Magnesium Hydroxide [Milk of 2,400 mg PO Q8H PRN 05/21/16 05/21/16 History Magnesia] Natural Balance Tears Solution 0.4% 1 drop BOTH EYES BID 05/21/16 05/21/16 History Potassium Chloride ER [K-Dur 20] 20 meq PO BID 05/21/16 05/21/16 History Sennosides [Senna] 8.6 mg PO DAILY 05/21/16 05/21/16 History amLODIPine BESYLATE [Norvasc] 2.5 mg PO DAILY 05/21/16 05/21/16 History traZODone HCL 50 mg PO HS@199905/21/16 05/21/16 History Allergies Allergy/AdvReac Type Severity Reaction Status Date / Time No Known Allergies Allergy Verified 05/21/16 14:59 Physical Exam Vitals: Vital Signs Temp Pulse Pulse Resp BP BP Pulse Ox 05/22/16 16:46 84 05/22/16 16:35 84 05/22/16 15:31 18 05/22/16 15:00 97.1 F L 85 19 92/59 97 05/22/16 11:34 18 05/22/16 09:36 97.6 F 106 H 16 102/61 98 05/22/16 08:49 82 05/22/16 08:39 82 05/22/16 04:00 97.7 F 103 H 18 92/70 97 05/22/16 00:00 97.7 F 98 18 101/69 97 05/21/16 22:00 97.0 F L 102 H 18 99/65 95 05/21/16 20:00 97.0 F L 102 H 18 99/65 95 05/21/16 18:50 96.9 F L 101 H 20 90/48 97 05/21/16 18:08 72 18 93/54 95 Intake and Output 05/22/16 05/22/16 05/22/16 06:59 14:59 22:59 Intake Total 25 Output Total 300 Balance -300 25 Intake: Oral 25 Output: Urine 300 Other: # Voids 1 # Bowel Movements 1 Weight 53.3 kg 53.3 kg Patient Weight 05/23/16 06:59 Weight 53.3 kg On examination she is awake alert answers most questions. HEENT exam no JVP neck is supple no facial asymmetry no thyromegaly or carotid bruit Lungs exam was somewhat difficult with patient feeling very cold. Does occasional coarse crackle at both bases. Fair air entry. No dullness percussion there is kyphoscoliosis. Heart sounds are unremarkable for any murmur rub gallop Abdomen soft nontender no organomegaly ascites masses Extremity exam was no edema Awake alert oriented 3. No Motor deficit. Somewhat poor memory Results - Lab Results Most recent lab results Calcium 9.3 mg/dL (8.4-10.2) 05/21/16 14:57 Phosphorus 4.6 mg/dL (2.5-4.5) H 05/21/16 14:57 Magnesium 2.6 mg/dL (1.6-2.3) H 05/21/16 14:57 05/21/16 14:57 05/21/16 14:57 Assessment and Plan Plan: Impression. 1. Acute kidney injury secondary to pneumonia and sepsis. Creatinine is 2.14 as of yesterday was 2.73 on 05/18/2016 and 1.42 on 05/25/2015 which is one year ago baseline creatinine therefore is not certain could be 1.42 from a year ago. UA shows no proteinuria therefore this is nephrosclerosis. 2. Mild hypernatremia secondary to poor intake 3. Mild gap and non-gap acidosis with an anion gap of 16 and a bicarb of 21 suggestive of her mild metabolic alkalosis as well possibly 2. Chronic kidney disease Baseline creatinine as mentioned above may be 1.4 to a dysplastic. She has had a creatinine of 1.36 as of 03/10/2014. Nephrosclerosis etiology based on benign urinalysis. 3. Admitted with pneumonia and left perihilar area with small left-sided pleural effusion. 4. Severe kyphoscoliosis. 5. Possible weight loss over one month with loss of appetite 6. Atrial fibrillation Recommendation. Would gently hydrated with IV fluids normal saline at 75 an hour. Agree with IV antibiotics. Maintain the losartan at the moment and will see how it goes with a creatinine
[2016-05-22] MEDS: FAMOTIDINE 20 MG TAB PO SCH (19:58)
[2016-05-22] MEDS: ASCORBIC ACID 500 MG TAB PO SCH (19:58)
[2016-05-22] MEDS: traZODone HCL 50 MG TAB PO SCH (19:58)
[2016-05-22] MEDS: FERROUS SULFATE 325 MG TAB PO SCH (19:58)
[2016-05-22] MEDS ORDERED: LEVOFLOXACIN 500MG-D5W PMX 500 MG in DEXTROSE/WATER 1 100ML.BAG IVPB SCH (20:00)
[2016-05-23] MEDS: SODIUM CHLORIDE 0.45% 1,000 ML IV SCH ×2 (03:18→16:47)
--- NOTE | 2016-05-23 10:05 | P.PN ---
Subjective This is an 89-year-old female who resides at [facility]. According to the EMS note, they were called because of possible sepsis, and noted mental status changes. Patient was also noted to have elevated white blood cell count as an outpatient, and she has not been drinking or eating much in the past number of days. Chest x-ray on admission revealed moderate pulmonary fibrosis with a new infiltrate in the left lower lobe. Repeat chest x-ray this morning did reveal progressive left perihilar infiltrate with a small left-sided effusion. EKG on admission showed atrial fibrillation with a controlled ventricular response. Lab data, WBC 15.7, hemoglobin 12.5. Potassium 5.0, sodium 148, BUN 89, creatinine 2.1. Magnesium level is 2.6. AST 77, ALT 172, alk phos 271. Troponin 0.012, BNP 1100. Patient has been afebrile, blood pressure 80/56 on admission, 95% on 2 L of oxygen. No reported nausea or vomiting or abdominal pain. No witnessed aspiration. No documented fever. No seizure. No loss in consciousness. The patient was started on a combination of Zosyn and Levaquin. Clinically much more alert on today's evaluation. On 05/23/2016, the patient is being seen in follow-up. She has poor recollection. She is having obvious memory difficulties. No signs of any respiratory distress at this point. She is on room air oxygen and no significant oxygen desaturations. She is still being treated with a combination of Zosyn and Levaquin regarding a left lower lobe pneumonia. Follow -up blood work has not been done and this will be crucial especially with her underlying baseline abnormalities it was noted at the time of admission. A follow-up chest x-ray will also be needed. Oral intake is minimal. No aspiration has been reported. Objective - Vital Signs Vital signs: Vital Signs Temp 97.1 F L 05/23/16 07:00 Pulse 64 05/23/16 07:00 Resp 16 05/23/16 07:00 BP 126/66 05/23/16 07:00 Pulse Ox 96 05/23/16 07:00 Intake & Output 05/22/16 05/23/16 05/23/16 18:59 06:59 18:59 Intake Total 25 650 Balance 25 650 Weight 53.3 kg Intake: Oral 25 650 Other: # Voids 1 2 # Bowel Movements 1 - Exam Head exam was generally normal. There was no scleral icterus or corneal arcus. Mucous membranes were moist.Neck was supple and without jugular venous distension, thyromegaly, or carotid bruits. Carotids were easily palpable bilaterally. There was no adenopathy. The patient's chest is kyphoscoliotic and in addition to that there is diminished breath sounds and scattered crackles in the left lung base more so compared to right.Cardiac exam revealed the PMI to be normally situated and sized. The rhythm was regular and no extrasystoles were noted during several minutes of auscultation. The first and second heart sounds were normal and physiologic splitting of the second heart sound was noted. There were no murmurs, rubs, clicks, or gallops.Abdominal exam revealed normal bowel sounds. The abdomen was soft, non-tender, and without masses, organomegaly, or appreciable enlargement of the abdominal aorta. 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 There is no cyanosis or clubbing at this point. - Labs CBC & Chem 7: 05/21/16 14:57 05/21/16 14:57 Assessment and Plan Plan: Assessment 1 left lower lobe/perihilar pneumonia. Rule out aspiration pneumonia. Rule out nursing more acquired pneumonia. Currently the patient is on a combination of Zosyn and Levaquin. On 05/23/2016, the patient remains essentially stable. The follow-up chest x- ray will be done in regards to the pneumonia in the left lower lobe. 2 change in mental status secondary to left lung pneumonia, improving. The patient is underlying baseline dementia. 3 generalized weakness and lethargy and change in mental status secondary to above 4 COPD 5 kyphoscoliosis of the chest 6 chronic renal failure. Baseline creatinine is not known 7 hypertension 8 dementia 9 [facility] resident 10 previous orthopedic surgery involving bilateral hip replacement Plan Aspiration precaution. Swallow evaluation at the bedside by speech pathology. Continue Zosyn and Levaquin. Follow-up chest x-ray in a.m. Obtain blood work to monitor the white cell count of the renal function. We'll continue to follow.
[2016-05-23] MEDS: PIPERACILLIN-TAZOBACTAM 3.375 GM in DEXTROSE/WATER 1 50ML.BAG IVPB SCH ×2 (11:00→20:19)
[2016-05-23] MEDS: GABAPENTIN 300 MG CAP PO SCH (11:01)
[2016-05-23] MEDS: POTASSIUM CHLORIDE ER 20 MEQ TAB.ER PO SCH (11:01)
[2016-05-23] MEDS: ENOXAPARIN 30 MG/0.3 ML SYRINGE SQ SCH (11:01)
[2016-05-23] MEDS: LOSARTAN-HCTZ 50-12.5 MG 1 EACH TAB PO SCH (11:01)
[2016-05-23] MEDS: ASPIRIN 81 MG CHEW PO SCH ×2 (11:02→16:47)
[2016-05-23] MEDS: SENNOSIDES 8.6 MG TAB PO SCH (11:02)
[2016-05-23] MEDS: ARTIFICIAL TEARS-HYPROMELLOSE DROPS 15 ML BTL BOTH EYES SCH ×2 (11:02→20:19)
[2016-05-23] MEDS: IPRATROPIUM-ALBUTEROL 3 ML NEB INHALATION SCH ×4 (11:09→20:15)
[2016-05-23 11:52] LABS: Basophils % (A) 0 %; CH 31.6; CHCM 30.4; Eosinophils # (A) 0.1 k/uL (0-0.7); Eosinophils % (A) 1 %; HCT 36.7 % (34.0-46.0); HGB 11.1 gm/dL (11.4-16.0); Hypochromasia Moderate; Luc # (Auto) 0.13; Luc % (Auto) 1; Lymphocytes # (A) 0.7 k/uL (1.0-4.8); Lymphocytes % (A) 7 %; MCH 31.8 pg (25.0-35.0); MCHC 30.3 g/dL (31.0-37.0); MCV 104.9 fL (80.0-100.0); Macrocytosis Moderate; Mean Platelet Volume 7.1; Monocytes # (A) 0.4 k/uL (0-1.0); Monocytes % (A) 4 %; Neutrophils % (A) 87 %; RDW 14.1 % (11.5-15.5); WBC 10.4 k/uL (3.8-10.6); WBC (Perox) 10.79
[2016-05-23 12:09] LABS: Calcium 8.8 mg/dL (8.4-10.2); Potassium 5.3 mmol/L (3.5-5.1); Total Bilirubin 0.4 mg/dL (0.2-1.3)
--- NOTE | 2016-05-23 12:09 | P.PN ---
Subjective A very pleasant 89-year-old female being seen on rounds this morning. Is able to transfer with the assist of 1 from the bed to the bedside commode. There is no document shortness of breath. Patient is on room air with documented sats 96%. Patient's pleasant and oriented to person only. Patients being followed by pulmonology service for chest x-ray suggesting new infiltrate left lower lobe pneumonia Objective - Vital Signs Vital signs: Vital Signs Temp 97.1 F L 05/23/16 07:00 Pulse 72 05/23/16 11:54 Resp 16 05/23/16 07:00 BP 126/66 05/23/16 07:00 Pulse Ox 96 05/23/16 07:00 Intake & Output 05/22/16 05/23/16 05/23/16 18:59 06:59 18:59 Intake Total 25 650 Balance 25 650 Weight 53.3 kg Intake: Oral 25 650 Other: # Voids 1 2 # Bowel Movements 1 - Exam Physical exam 89-year-old female pleasant cooperative oriented to person place no recall of event following simple command Lungs posterior diminished at the bases otherwise adequate air movement no wheezing no conversational dyspnea on room air sats are 95% Heart S1-S2 audible irregular Abdomen soft nontender urinating no difficulty Extremities no edema amputation left foot toes diminished pedal pulses - Labs CBC & Chem 7: 05/23/16 11:30 05/21/16 14:57 Labs: Abnormal Lab Results - Last 24 Hours (Table) 05/23/16 Range/Units 11:30 RBC 3.50 L (3.80-5.40) m/uL Hgb 11.1 L (11.4-16.0) gm/dL MCV 104.9 H (80.0-100.0) fL MCHC 30.3 L (31.0-37.0) g/dL Neutrophils # 9.0 H (1.3-7.7) k/uL Lymphocytes # 0.7 L (1.0-4.8) k/uL Assessment and Plan Plan: Impression Present on admission acute encephalopathy suspect metabolic Present on admission chest x-ray suggests left lower lobe pneumonia Physical debility suspect chronic Generalized weakness decreased endurance suspect chronic COPD no evidence of exacerbation Advanced directives indicating no CODE STATUS Chronic renal failure suspect stage II Present on admission clinical dehydration Plan Continue with recommendations by pulmonology service IV antibiotics as ordered PT OT eval DVT and GI prophylaxis Aspiration precautions repeat swallow eval Further recommendations pending will follow IV hydration currently at 75 mL an hour Possible transfer back to the ECF facility in the next 48 hours if medically stable The above dictated assessment and findings were discussed with dr greta Corley and the plan of care have been dictated as directed. Umm Oakley nurse practitioner acting as a scribe for dr hernandes
--- NOTE | 2016-05-23 12:38 | P.PN ---
Subjective This is an 89-year-old female from senior care with dementia who was admitted with acute kidney injury secondary to prerenal from low intake and possible pneumonia. She can use to be confused irritated and says that she is not feeling well at all. She is not able to be specific. She denies any fever chills nausea vomiting. She says her appetite is poor. Denies any abdominal pain dysuria frequency or diarrhea. She was admitted from the senior care because of deterioration of or all over all status. There is very little information that can be relied upon. Supposedly should there was some worsening of her mental status dementia and white count was elevated Objective - Vital Signs Vital signs: Vital Signs Temp 97.1 F L 05/23/16 07:00 Pulse 72 05/23/16 12:04 Resp 16 05/23/16 07:00 BP 126/66 05/23/16 07:00 Pulse Ox 96 05/23/16 07:00 Intake & Output 05/22/16 05/23/16 05/23/16 18:59 06:59 18:59 Intake Total 25 650 Balance 25 650 Weight 53.3 kg Intake: Oral 25 650 Other: # Voids 1 2 # Bowel Movements 1 On examination she is awake alert answers most questions. HEENT exam no JVP neck is supple no facial asymmetry no thyromegaly or carotid bruit Lungs exam was significant with occasional coarse crackle at both bases. Fair air entry. No dullness percussion there is kyphoscoliosis. Heart sounds are unremarkable for any murmur rub gallop Abdomen soft nontender no organomegaly ascites masses Extremity exam was no edema Awake alert oriented 3. No Motor deficit. Somewhat poor memory. Somewhat agitated and is unable to be specific about why she is not feeling - Labs CBC & Chem 7: 05/23/16 11:30 05/23/16 10:05 Labs: Abnormal Lab Results - Last 24 Hours (Table) 05/23/16 05/23/16 Range/Units 10:05 11:30 RBC 3.50 L (3.80-5.40) m/uL Hgb 11.1 L (11.4-16.0) gm/dL MCV 104.9 H (80.0-100.0) fL MCHC 30.3 L (31.0-37.0) g/dL Neutrophils # 9.0 H (1.3-7.7) k/uL Lymphocytes # 0.7 L (1.0-4.8) k/uL Potassium 5.3 H (3.5-5.1) mmol/L Chloride 115 H (98-107) mmol/L Carbon Dioxide 18 L (22-30) mmol/L BUN 37 H (7-17) mg/dL Creatinine 1.48 H (0.52-1.04) mg/dL ALT 81 H (9-52) U/L Alkaline Phosphatase 171 H (38-126) U/L Total Protein 6.0 L (6.3-8.2) g/dL Albumin 2.7 L (3.5-5.0) g/dL Assessment and Plan Plan: Impression. 1. Acute kidney injury secondary to pneumonia and sepsis. Creatinine is 2.14 as of yesterday was 2.73 on 05/18/2016 and 1.42 on 05/25/2015 which is one year ago baseline creatinine therefore is not certain could be 1.42 from a year ago. UA shows no proteinuria therefore this is nephrosclerosis. Creatinine improved to 1.48 this morning. Urine output has not been well documented. 2. Mild hypernatremia secondary to poor intake. Sodium improved from 148-145. 3. Mild hyperkalemia potassium is 5.3 from acute kidney injury and losartan, and potassium being given. 3. Mild gap and non-gap acidosis with an anion gap of 16 and a bicarb of 21 suggestive of her mild metabolic alkalosis as well possibly. bicarb went down to 18 secondary to possibly IV fluids. 2. Chronic kidney disease Baseline creatinine as mentioned above may be 1.4 to a dysplastic. She has had a creatinine of 1.36 as of 03/10/2014. Nephrosclerosis etiology based on benign urinalysis. 3. Admitted with pneumonia and left perihilar area with small left-sided pleural effusion. 4. Severe kyphoscoliosis. 5. Possible weight loss over one month with loss of appetite 6. Atrial fibrillation Recommendation. Would continue hydrated with IV fluids normal saline at 75 an hour. Discontinue potassium supplement. Maintain losartan Agree with IV antibiotics. Maintain the losartan at the moment and will see how it goes with a creatinine
--- NOTE | 2016-05-23 13:44 | CDI ---
In responding to this query, please exercise your independent professional judgment. The [facility] Coding Staff and Clinical Documentation Specialists appreciate your assistance in clarifying documentation, maintaining compliance with coding guidelines, accurately documenting patients condition and capturing severity of illness. The fact that a question is asked does not imply that any particular answer is desired or expected. Communication forms are a method of clarifying documentation and are not made part of the Legal Health Record. Thank you in advance for your clarification. Last Revision, March [address] [place] [place] [address] Documentation Clarification Form Date: 05/23/2016 1:14:00 PM From: Meeta Dickinson Admit Date: 05/21/2016 4:09:00 PM Patient Name: Fátima Arana Visit Number: [id number] Discharge Date: Dr. Bryn Clay/Umm Oakley [employer] ER documentation has noted patient presents for evaluation of weakness, fever, possible sepsis. History/Risk Factors: Dementia, GERD/Reflux, Hypertension, Renal disease Clinical Indicators: altered mental status, anxious, lethargic, distress. WBC/Left Shift: 15.7, BUN 89, CR 2.14, NA+ 148 Chest x-ray: new infiltrate in left lower lobe Lactic acid: 1.3 Blood cultures: No Growth after 24 hours Vitals signs on admission: 80/56 76 18 96.7 Treatment: Antibiotics: IV Zosyn, IV Levaquin IV Bolus: Yes Other: Aspiration precautions Monitor Labs In your professional opinion, can you please clarify if the patient condition indicates: SIRS, without underlying infectious process Sepsis Severe Sepsis Septic Shock Unable to determine Other, please specify * Identify the (suspected) organism * Link or clarify if there is associated (due to/with): - Organ failure - Shock SIRS Criteria: 2 or more of the following may indicate SIRS Temperature < 96.8F(36C) or > 101.0F (38C) Heart Rate > 90 bpm Respiratory Rate > 20 breaths/min or PaCO2 < 32 mmHg White Blood Cell Count > 12,000 or < 4,000 cells/mm3 or > 10% bands Please document in your progress notes and discharge summary in order to capture severity of illness and risk of mortality. Include clinical findings that support your diagnosis. FYI: Press F11 to launch patient chart. Place X here if this finding has no clinical significance, is not applicable or if you are not able to provide any additional documentation. MTDD
[2016-05-23] MEDS: FERROUS SULFATE 325 MG TAB PO SCH (20:19)
[2016-05-23] MEDS: FAMOTIDINE 20 MG TAB PO SCH (20:19)
[2016-05-23] MEDS: ASCORBIC ACID 500 MG TAB PO SCH (20:19)
[2016-05-23] MEDS: traZODone HCL 50 MG TAB PO SCH (20:19)
[2016-05-24] MEDS: SODIUM CHLORIDE 0.45% 1,000 ML IV SCH ×2 (06:15→15:03)
[2016-05-24] MEDS: IPRATROPIUM-ALBUTEROL 3 ML NEB INHALATION SCH ×4 (09:17→19:51)
[2016-05-24] MEDS: PIPERACILLIN-TAZOBACTAM 3.375 GM in DEXTROSE/WATER 1 50ML.BAG IVPB SCH ×2 (09:27→17:51)
[2016-05-24] MEDS: ENOXAPARIN 30 MG/0.3 ML SYRINGE SQ SCH (09:27)
[2016-05-24] MEDS: SENNOSIDES 8.6 MG TAB PO SCH (09:28)
[2016-05-24] MEDS: LOSARTAN-HCTZ 50-12.5 MG 1 EACH TAB PO SCH (09:28)
[2016-05-24] MEDS: ARTIFICIAL TEARS-HYPROMELLOSE DROPS 15 ML BTL BOTH EYES SCH ×2 (09:28→21:14)
[2016-05-24] MEDS: GABAPENTIN 300 MG CAP PO SCH (09:29)
[2016-05-24] MEDS: ASPIRIN 81 MG CHEW PO SCH ×2 (09:29→17:01)
--- NOTE | 2016-05-24 10:32 | XR ---
EXAMINATION TYPE: XR chest 1V DATE OF EXAM: 05/24/2016 8:52 AM COMPARISON: 05/22/2016 INDICATION: Previous abnormal chest TECHNIQUE: Single frontal view of the chest is obtained. FINDINGS: The heart size is normal. The pulmonary vasculature is normal. Mild left perihilar infiltrate is present. A small left pleural effusion is present. IMPRESSION: 1. Mild left perihilar infiltrate, improved from 05/22/2016 2. Small left pleural effusion.
--- NOTE | 2016-05-24 11:08 | P.PN ---
Subjective 89-year-old female being seen on rounds of the attending this morning currently is sitting up in bed is pleasant cooperative oriented to self and place. Patient states anxious to go back home" this been no shortness of breath noted with conversation or at rest. Hospital course 89-year-old female who lives at an [facility] facility [place] [facility] was transferred via EMS system care providers noted the patient to be confused decreased mentation different from baseline. Was also noted the patient had an elevated white count in the outpatient setting. Patient reportedly was not drinking or eating much. Chest x-ray on admission did show moderate pulmonary fibrosis. Chest x-ray also showed a new infiltrate involving the left lower lobe of the lung. Patient does have a history of dementia but no behavior changes given the above clinical presentation care providers at the [facility] facility transferred patient for the above-mentioned symptoms patient was started on IV antibiotic in the form of Levaquin and Zosyn for treatment of the left lower lobe pneumonia rule out aspiration pneumonia rule out senior care acquired pneumonia the combination of Zosyn and Levaquin should adequately provide coverage. It was noted in the emergency room patient was hypotensive the blood pressure was 80/56 with a white count with a left shift 15.7 patient was noted to be anxious lethargic different from baseline suspect sepsis due to left lower lobe pneumonia as indicated on a chest x-ray. Patient's hypotensive episode in the emergency room was treated with an IV fluid bolus in which the blood pressure did respond Nephrology consultation was requested. Patient has been followed by nephrology for acute kidney injury secondary to pneumonia with sepsis. The creatinine is improving. The creatinine on May 23 was 1.4. On admission the creatinine was 2. 1 Objective - Vital Signs Vital signs: Vital Signs Temp 97.9 F 05/24/16 07:00 Pulse 72 05/24/16 07:00 Resp 16 05/24/16 07:00 BP 130/80 05/24/16 07:00 Pulse Ox 95 05/24/16 07:00 Intake & Output 05/23/16 05/24/16 05/24/16 18:59 06:59 18:59 Other: Voiding Method Bedside Commode Bedside Commode # Voids 2 4 # Bowel Movements 2 2 - Exam Physical exam 89-year-old female pleasant oriented to person and place cooperative resting in bed Lungs posterior diminished at the bases upper airways bronchial breath sounds on room air no cough noted no conversational dyspnea noted Heart S1-S2 audible regular Abdomen soft nontender no stooling is using the bedside commode Extremities no edema noted - Labs CBC & Chem 7: 05/23/16 11:30 05/23/16 10:05 Labs: Abnormal Lab Results - Last 24 Hours (Table) 05/23/16 05/23/16 Range/Units 10:05 11:30 RBC 3.50 L (3.80-5.40) m/uL Hgb 11.1 L (11.4-16.0) gm/dL MCV 104.9 H (80.0-100.0) fL MCHC 30.3 L (31.0-37.0) g/dL Neutrophils # 9.0 H (1.3-7.7) k/uL Lymphocytes # 0.7 L (1.0-4.8) k/uL Potassium 5.3 H (3.5-5.1) mmol/L Chloride 115 H (98-107) mmol/L Carbon Dioxide 18 L (22-30) mmol/L BUN 37 H (7-17) mg/dL Creatinine 1.48 H (0.52-1.04) mg/dL ALT 81 H (9-52) U/L Alkaline Phosphatase 171 H (38-126) U/L Total Protein 6.0 L (6.3-8.2) g/dL Albumin 2.7 L (3.5-5.0) g/dL Assessment and Plan Plan: Impression Present on admission acute encephalopathy suspect metabolic Present on admission chest x-ray suggests left lower lobe pneumonia Physical debility suspect chronic wheelchair bedbound Generalized weakness decreased endurance suspect chronic COPD no evidence of exacerbation Advanced directives indicating no CODE STATUS Chronic renal failure suspect stage II Present on admission clinical dehydration Baseline dementia with no behavior disturbance Present on admission hypotensive leukocytosis altered mental status suspect sepsis due to left lower lobe pneumonia Present on admission mild hypernatremia secondary to poor: Oral intake Present on admission clinical dehydration poor oral intake Mild gap and non-gap acidosis with an anion gap of 16 and a bicarb of 21 suggestive of her mild metabolic alkalosis as well Severe kyphoscoliosis. Plan Continue with recommendations by pulmonology service IV antibiotics as ordered Levaquin and Zosyn PT OT eval DVT and GI prophylaxis Aspiration precautions repeat swallow eval Further recommendations pending will follow IV hydration currently at 75 mL an hour transfer patient back to the ECF facility within the next 24 hours if medically stable The above dictated assessment and findings were discussed with dr hernandes Impression and the plan of care have been dictated as directed. Umm Oakley nurse practitioner acting as a scribe for dr hernandes
--- NOTE | 2016-05-24 15:40 | P.PN ---
Subjective This is an 89-year-old female patient who resides at [facility]. She was brought in with possible sepsis and noted mental status changes. She been seen initially by Dr. Montoya. Her chest x-ray did reveal moderate pulmonary fibrosis with a new infiltrate in left lower lobe and she has been treated for the same. She is seen again today in follow-up. She is awake and alert in no acute distress. She does have some dementia and slight agitation. She does deny any worsening shortness of breath at this time. No chills or night sweats. Her white count has recovered. She is maintaining good O2 saturations in the mid 90s on room air. She is afebrile. Her chest x-ray is showing improvement. Objective - Vital Signs Vital signs: Vital Signs Temp 97.9 F 05/24/16 07:00 Pulse 78 05/24/16 15:12 Resp 16 05/24/16 07:00 BP 130/80 05/24/16 07:00 Pulse Ox 95 05/24/16 07:00 Intake & Output 05/23/16 05/24/16 05/24/16 18:59 06:59 18:59 Other: Voiding Method Bedside Commode Bedside Commode # Voids 2 4 # Bowel Movements 2 2 - Exam GENERAL EXAM: Alert, disoriented to time and place, comfortable in no apparent distress. HEAD: Normocephalic. EYES: Normal reaction of pupils, equal size. NOSE: Clear with pink turbinates. THROAT: No erythema or exudates. NECK: No masses, no JVD. CHEST: No chest wall deformity. LUNGS: Equal air entry with few scattered rhonchi. Diminished CVS: S1 and S2 normal with no audible murmurs, regular rhythm. ABDOMEN: No hepatosplenomegaly, normal bowel sounds, no guarding or rigidity. Extremities: There is trace peripheral edema. No clubbing, no cyanosis. Peripheral pulses are intact. - Labs CBC & Chem 7: 05/23/16 11:30 05/23/16 10:05 Assessment and Plan Plan: Impression: #1 Altered mental status secondary to left lung pneumonia, improving. The patient does have underlying dementia. #2 Left lower lobe/perihilar pneumonia. Most likely healthcare acquired is patient resides in extended care. Currently treated with Zosyn and Levaquin. #3 Generalized weakness and lethargy with altered mental status, improved. #4 Chronic obstructive pulmonary disease. #5 Kyphoscoliosis of the chest. #6 Chronic renal failure. #7 Hypertension. #8 Dementia. Plan: The patient was seen and evaluated by Dr. Montoya. Her chest x-ray and labs were reviewed. She remains on Zosyn and Levaquin. Swallow evaluation was completed and dietary recommendations were noted. She remains on aspiration precautions. She could return to the extended care facility and complete her course of antibiotics. If not transferred today we will continue to follow make further recommendations based on her clinical status.
--- NOTE | 2016-05-24 15:56 | P.PN ---
Subjective This is an 89-year-old female from [facility] with dementia who was admitted with acute kidney injury secondary to prerenal from low intake and possible pneumonia. She is feeling somewhat better today. He continues to have mild cough and shortness of breath. No fever chills no nausea vomiting. Poor appetite. Remains confused. Denies any diarrhea abdominal pain frequency. Workup so far negative blood cultures and urine cultures. Likely has pneumonia She was admitted from the [facility] because of deterioration of or all over all status. There is very little information that can be relied upon. Supposedly should there was some worsening of her mental status dementia and white count was elevated Objective - Vital Signs Vital signs: Vital Signs Temp 97.9 F 05/24/16 07:00 Pulse 78 05/24/16 15:12 Resp 16 05/24/16 07:00 BP 130/80 05/24/16 07:00 Pulse Ox 95 05/24/16 07:00 Intake & Output 05/23/16 05/24/16 05/24/16 18:59 06:59 18:59 Other: Voiding Method Bedside Commode Bedside Commode # Voids 2 4 # Bowel Movements 2 2 On examination awake alert but disoriented confused. HEENT exam no JVP neck is supple no facial asymmetry Lungs are significant for bilateral coarse crackles. Fair air entry no dullness percussion Heart sounds are unremarkable no murmur rub gallop. She may be in atrial fibrillation Abdomen soft nontender no masses felt. No ascites. Extremity exam was no edema Neurologically awake alert disoriented 3 but no focal motor deficits - Labs CBC & Chem 7: 05/23/16 11:30 05/23/16 10:05 Assessment and Plan Plan: Impression. 1. 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 Labs are not available from today. Yesterday's Creatinine is down to 1.48 from a peak of 2.73 dated 05/18/2016 has come down to 2.14 On 05/21/2016 urine output not documented. 2. Chronic kidney disease with baseline creatinine 1.42 on 05/25/2015 which is one year ago baseline creatinine therefore is not certain could be 1.42 from a year ago. UA shows no proteinuria therefore this is nephrosclerosis. 2. Mild hypernatremia secondary to poor intake. Sodium improved from 148-145. 3. Mild hyperkalemia potassium is 5.3 from acute kidney injury and losartan, and potassium being given. 3. Mild gap and non-gap acidosis with an anion gap of 16 and a bicarb of 21 suggestive of her mild metabolic alkalosis as well possibly. bicarb went down to 18 secondary to possibly IV fluids. 3. Admitted with pneumonia and left perihilar area with small left-sided pleural effusion. 4. Severe kyphoscoliosis. 5. Possible weight loss over one month with loss of appetite 6. Atrial fibrillation Recommendation. Check labs today Would continue hydrated with IV fluids normal saline at 75 an hour. Maintain losartan Agree with IV antibiotics. Maintain the losartan at the moment and will see how it goes with a creatinine
[2016-05-24] MEDS: SODIUM BICARBONATE TAB 650 MG TAB PO SCH ×2 (17:01→23:48)
[2016-05-24 17:29] LABS: Potassium 4.8 mmol/L (3.5-5.1)
[2016-05-24] MEDS ORDERED: LEVOFLOXACIN 750MG-D5W PMX 750 MG in DEXTROSE/WATER 1 150ML.BAG IVPB SCH (20:00)
[2016-05-24] MEDS: FERROUS SULFATE 325 MG TAB PO SCH (21:13)
[2016-05-24] MEDS: traZODone HCL 50 MG TAB PO SCH (21:13)
[2016-05-24] MEDS: FAMOTIDINE 20 MG TAB PO SCH (21:13)
[2016-05-24] MEDS: ASCORBIC ACID 500 MG TAB PO SCH (21:14)
[2016-05-25] MEDS: PIPERACILLIN-TAZOBACTAM 3.375 GM in DEXTROSE/WATER 1 50ML.BAG IVPB SCH ×2 (00:03→10:31)
[2016-05-25] MEDS: SODIUM CHLORIDE 0.45% 1,000 ML IV SCH (06:06)
[2016-05-25 07:47] VITALS: BP 110/67; RESP 20; TEMP 96.5
[2016-05-25] MEDS: IPRATROPIUM-ALBUTEROL 3 ML NEB INHALATION SCH ×2 (08:07→11:37)
[2016-05-25 08:09] VITALS: PULSE 70
[2016-05-25] MEDS: ASPIRIN 81 MG CHEW PO SCH (09:15)
[2016-05-25] MEDS: GABAPENTIN 300 MG CAP PO SCH (09:15)
[2016-05-25] MEDS: ARTIFICIAL TEARS-HYPROMELLOSE DROPS 15 ML BTL BOTH EYES SCH (09:15)
[2016-05-25] MEDS: SENNOSIDES 8.6 MG TAB PO SCH ×2 (09:15→09:22)
[2016-05-25] MEDS: SODIUM BICARBONATE TAB 650 MG TAB PO SCH ×2 (09:15→12:37)
[2016-05-25] MEDS: ENOXAPARIN 30 MG/0.3 ML SYRINGE SQ SCH (09:15)
[2016-05-25] MEDS: LOSARTAN-HCTZ 50-12.5 MG 1 EACH TAB PO SCH (09:15)
--- NOTE | 2016-05-25 11:40 | P.DS ---
Providers Date of admission: 05/21/16 16:09 Hospital course 89-year-old female who lives at an [facility] facility Gabriela ramos was transferred via EMS system care providers noted the patient to be confused decreased mentation different from baseline. Was also noted the patient had an elevated white count in the outpatient setting. Patient reportedly was not drinking or eating much. Chest x-ray on admission did show moderate pulmonary fibrosis. Chest x-ray also showed a new infiltrate involving the left lower lobe of the lung. Patient does have a history of dementia but no behavior changes given the above clinical presentation care providers at the [facility] facility transferred patient for the above-mentioned symptoms patient was started on IV antibiotic in the form of Levaquin and Zosyn for treatment of the left lower lobe pneumonia rule out aspiration pneumonia rule out care home acquired pneumonia the combination of Zosyn and Levaquin should adequately provide coverage. It was noted in the emergency room patient was hypotensive the blood pressure was 80/56 with a white count with a left shift 15.7 patient was noted to be anxious lethargic different from baseline suspect sepsis due to left lower lobe pneumonia as indicated on a chest x-ray. Patient's hypotensive episode in the emergency room was treated with an IV fluid bolus in which the blood pressure did respond Nephrology consultation was requested. Patient has been followed by nephrology for acute kidney injury secondary to pneumonia with sepsis. The creatinine is improving. The creatinine on May 23 was 1.4. On admission the creatinine was 2. 1 Impression Present on admission acute encephalopathy suspect metabolic Present on admission chest x-ray suggests left lower lobe pneumonia Physical debility suspect chronic wheelchair bedbound Generalized weakness decreased endurance suspect chronic COPD no evidence of exacerbation Advanced directives indicating no CODE STATUS Chronic renal failure suspect stage II Present on admission clinical dehydration Baseline dementia with no behavior disturbance Present on admission hypotensive leukocytosis altered mental status suspect sepsis due to left lower lobe pneumonia Present on admission mild hypernatremia secondary to poor: Oral intake Present on admission clinical dehydration poor oral intake Mild gap and non-gap acidosis with an anion gap of 16 and a bicarb of 21 suggestive of her mild metabolic alkalosis as well Severe kyphoscoliosis. The above dictated assessment and findings were discussed with dr greta Corley and the plan of care have been dictated as directed. Umm Oakley nurse practitioner acting as a scribe for dr hernandes Attending physician: Bryn Hernandes Consults: 05/22/16 00:18 Consult Physician Routine Consulting Provider: [facility] Consult Reason/Comments: Junctional Rhythm Do you want consulting provider notified?: Yes, Notify in am 05/22/16 00:38 Consult Physician Routine Consulting Provider: Spike Rushing Consult Reason/Comments: Elevated BUN, Creatinine Do you want consulting provider notified?: Yes, Notify in am 05/22/16 00:39 Consult Physician Routine Consulting Provider: Codey Valdivia Consult Reason/Comments: Pneumonia Do you want consulting provider notified?: Yes, Notify in am Primary care physician: Bryn Hernandes Patient Condition at Discharge: Serious Plan - Discharge Summary New Discharge Prescriptions: Butalb/APAP/Caff 50-325-40Mg [Fioricet 50-325-40] 1 each PO Q24H PRN #30 tab PRN Reason: Migraine Headache Cefuroxime Axetil [Ceftin] 500 mg PO BID #14 tab Levofloxacin [Levaquin] 500 mg PO DAILY #5 tab Discharge Medication List Acetaminophen Tab [Tylenol] 650 mg PO Q6H PRN 05/21/16 [History] Ascorbic Acid [Vitamin C] 500 mg PO HS 05/21/16 [History] Aspirin EC [Ecotrin Low Dose] 81 mg PO BID@0800,1600 05/21/16 [History] Butalb/Asprin/Caff 50-325-40Mg [Fiorinal 50-325-40 MG] 1 cap PO Q24H PRN [History] Docusate [Colace] 100 mg PO BID PRN 05/21/16 [History] Famotidine [Pepcid] 20 mg PO HS@2000 05/21/16 [History] Ferrous Sulfate [Feosol] 325 mg PO HS 05/21/16 [History] Furosemide [Lasix] 20 mg PO DAILY 05/21/16 [History] Gabapentin [Neurontin] 300 mg PO DAILY 05/21/16 [History] Lidocaine [Lidoderm 5% Patch] 1 patch TRANSDERM DAILY 05/21/16 [History] Losartan-Hctz 50-12.5 mg [Hyzaar 50-12.5] 1 tab PO DAILY 05/21/16 [History] Magnesium Hydroxide [Milk of Magnesia] 2,400 mg PO Q8H PRN 05/21/16 [History] Natural Balance Tears Solution 0.4% 1 drop BOTH EYES BID 05/21/16 [History] Potassium Chloride ER [K-Dur 20] 20 meq PO BID 05/21/16 [History] Sennosides [Senna] 8.6 mg PO DAILY 05/21/16 [History] amLODIPine BESYLATE [Norvasc] 2.5 mg PO DAILY 05/21/16 [History] traZODone HCL 50 mg PO HS@199905/21/16 [History] Butalb/APAP/Caff 50-325-40Mg [Fioricet 50-325-40] 1 each PO Q24H PRN #30 tab 04/29 [Rx] Cefuroxime Axetil [Ceftin] 500 mg PO BID #14 tab 05/25/16 [Rx] Ipratropium-Albuterol Nebulize [Duoneb 0.5 mg-3 mg/3 ml Soln] 3 ml INHALATION RT -QID ampul.neb 05/25/16 [Rx] Levofloxacin [Levaquin] 500 mg PO DAILY #5 tab 05/25/16 [Rx] Follow up Appointment(s)/Referral(s): Bryn Hernandes MD [Primary Care Provider] - 3 Days Patient Instructions/Handouts: Acute Kidney Injury (DC), Pneumonia (DC) Activity/Diet/Wound Care/Special Instructions: Cardiac diet. Discharge Disposition: TRANSFER TO SNF/ECF
--- NOTE | 2016-05-25 12:15 | P.PN ---
Subjective This is an 89-year-old female from detention with dementia who was admitted with acute kidney injury secondary to prerenal from low intake and possible pneumonia. She is continuing to improve. She has mild cough no shortness of breath no nausea vomiting appetite is fair. She seems much happier she has dementia though. She was admitted from the detention because of deterioration of or all over all status. There is very little information that can be relied upon. Supposedly should there was some worsening of her mental status dementia and white count was elevated Objective - Vital Signs Vital signs: Vital Signs Temp 96.5 F L 05/25/16 07:00 Pulse 70 05/25/16 11:46 Resp 20 05/25/16 07:00 BP 110/67 05/25/16 07:00 Pulse Ox 97 05/25/16 07:00 Intake & Output 05/24/16 05/25/16 05/25/16 18:59 06:59 18:59 Intake Total 240 Balance 240 Weight 53.3 kg Intake: Oral 240 Other: Voiding Method Bedside Commode # Voids 6 3 1 # Bowel Movements 2 1 On exertion she is awake alert. Disoriented somewhat. HEENT exam shows no JVP neck is supple no facial asymmetry. Lungs are significant for bilateral coarse crackle not clear but cough fair air entry no dullness to percussion Heart sounds are unremarkable no murmur rub gallop Abdomen is soft nontender no organomegaly status masses Extremity examination reveals no edema Awake alert but disoriented. No focal motor deficit. A chest x-ray shows mild left pleural effusion and mild left perihilar infiltrate improved - Labs CBC & Chem 7: 05/23/16 11:30 05/24/16 16:46 Labs: Abnormal Lab Results - Last 24 Hours (Table) 05/24/16 Range/Units 16:46 Chloride 108 H (98-107) mmol/L Carbon Dioxide 19 L (22-30) mmol/L BUN 22 H (7-17) mg/dL Creatinine 1.24 H (0.52-1.04) mg/dL Glucose 108 H (74-99) mg/dL Assessment and Plan Plan: Impression. 1. 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 Creatinine improved from 2.1. 1.24 as of yesterday 05/24/2016. 2. Chronic kidney disease with baseline creatinine 1.42 on 05/25/2015 which is one year ago baseline creatinine therefore is not certain could be 1.42 from a year ago. UA shows no proteinuria therefore this is nephrosclerosis. 2. Mild hypernatremia secondary to poor intake. Sodium improved from 148-145, and further to 141 yesterday and 05/24/2069. 3. Mild hyperkalemia potassium is 5.3 from acute kidney injury and losartan, and potassium being given. Potassium is 4.8 today 3. Mild gap and non-gap acidosis with an anion gap of 14 and bicarb 19 improved 3. Admitted with pneumonia and left perihilar area with small left-sided pleural effusion. 4. Severe kyphoscoliosis. 5. Possible weight loss over one month with loss of appetite 6. Atrial fibrillation 7. Hypotension. Blood pressures in the 100 210 range Recommendation. Discontinue blood pressure medications because of the low blood pressure. It could be reintroduced later
[2016-05-26] MEDS ORDERED: LEVOFLOXACIN 750 MG TAB PO SCH (20:00)
== END 2016-05-25 14:48 | DRG 871 ==
LOC: EC 14:29 → EEVIPCON 14:29 → 6SEL 16:09 → 4MS4W 05-22 11:15
PROVIDERS: ADMIT Family Medicine; ATTEND Family Medicine
DX: A41.9 Sepsis, unspecified organism (principal); G93.40 Encephalopathy, unspecified; N17.9 Acute kidney failure, unspecified; E87.4 Mixed disorder of acid-base balance; E87.0 Hyperosmolality and hypernatremia; J18.9 Pneumonia, unspecified organism; J84.10 Pulmonary fibrosis, unspecified; F05 Delirium due to known physiological condition; J44.0 Chronic obstructive pulmonary disease with (acute) lower respiratory infection; I48.1 Persistent atrial fibrillation; I48.2 Chronic atrial fibrillation; F03.90 Unspecified dementia, unspecified severity, without behavioral disturbance, psychotic disturbance, mood disturbance, and anxiety; E86.0 Dehydration; I12.9 Hypertensive chronic kidney disease with stage 1 through stage 4 chronic kidney disease, or unspecified chronic kidney disease; F32.9 Major depressive disorder, single episode, unspecified; F41.9 Anxiety disorder, unspecified; K21.9 Gastro-esophageal reflux disease without esophagitis; M41.9 Scoliosis, unspecified; N18.9 Chronic kidney disease, unspecified; Y95 Nosocomial condition; Z96.643 Presence of artificial hip joint, bilateral; E87.5 Hyperkalemia; Z87.891 Personal history of nicotine dependence
CPT/HCPCS: 36415; 71010; 71020; 80048; 80053; 81001; 82550; 82553; 83605; 83735; 83880; 84100; 84443; 84484; 85025; 85027; 85610; 85730; 87040; 87086; 87502; 93005; 93306; 94640; 96365; 96366; 96367; 99291

== ENCOUNTER 2016-08-05 14:39 | Inpatient (IN) | payer MEDICARE, OTHER ==
[2016-08-05] MEDS ORDERED: IPRATROPIUM-ALBUTEROL 3 ML NEB INHALATION STA (15:14)
[2016-08-05] MEDS ORDERED: LEVOFLOXACIN 750MG-D5W PMX 750 MG in DEXTROSE/WATER 1 150ML.BAG IVPB STA (15:14)
[2016-08-05] MEDS ORDERED: methylPREDNISolone SOD SUCCI 125 MG/2 ML VIAL IV STA (15:14)
[2016-08-05] MEDS ORDERED: SODIUM CHLORIDE 0.9% 1,000 ML IV STA (15:14)
[2016-08-05] MEDS: SODIUM CHLORIDE 0.9% 500 ML IV STA ×2 (15:45→16:43)
[2016-08-05 16:10] LABS: Basophils % (A) 0 %; CH 32.2; Eosinophils % (A) 0 %; HCT 35.7 % (34.0-46.0); HDW 2.74; HGB 11.4 gm/dL (11.4-16.0); Luc # (Auto) 0.28; Luc % (Auto) 4; Lymphocytes # (A) 1.5 k/uL (1.0-4.8); Lymphocytes % (A) 21 %; MCH 32.4 pg (25.0-35.0); MCV 101.4 fL (80.0-100.0); Macrocytosis Slight; Mean Platelet Volume 8.1; Monocytes # (A) 0.4 k/uL (0-1.0); Monocytes % (A) 6 %; Neutrophils # (A) 4.9 k/uL (1.3-7.7); Neutrophils % (A) 69 %; RBC 3.52 m/uL (3.80-5.40); RDW 14.3 % (11.5-15.5); WBC 7.1 k/uL (3.8-10.6); WBC (Perox) 7.55
[2016-08-05 16:20] LABS: Calcium 8.3 mg/dL (8.4-10.2); Potassium 4.5 mmol/L (3.5-5.1); Total Bilirubin 0.5 mg/dL (0.2-1.3); Total Protein 6.3 g/dL (6.3-8.2)
[2016-08-05 16:23] LABS: Partial Thromboplastin Time 28.5 sec (22.0-30.0); Prothrombin Time 10.4 sec (9.0-12.0)
[2016-08-05 16:41] LABS: Creatine Kinase MB 0.8 ng/mL (0.0-2.4); Troponin I 0.018 ng/mL (0.000-0.034)
--- NOTE | 2016-08-05 16:48 | XR ---
EXAMINATION TYPE: XR chest 2V DATE OF EXAM: 08/05/2016 4:41 PM COMPARISON: 05/24/2016 HISTORY: Pneumonia TECHNIQUE: Frontal and lateral views of the chest are obtained. FINDINGS: There is coarsening of interstitial markings. There is a patchy infiltrate in the left low er lobe. Heart is probably enlarged. There is thoracic kyphotic deformity. There is no definite pleur al effusion. There is some linear density at the left lung base. There are chest leads. IMPRESSION: Patchy left lower lobe pneumonia is probably improved compared to last exam. There is cl earing of left pleural effusion. There is patchy atelectasis at the left lung base. There is evidence of underlying moderate pulmonary interstitial fibrosis. No gross heart failure. No increasing pulmon diana density compared to last exam.
--- NOTE | 2016-08-05 18:00 | ED ---
SOB HPI - General Chief Complaint: Shortness of Breath Stated Complaint: pneumonia Time Seen by Provider: 08/05/16 14:46 Source: EMS Mode of arrival: EMS Limitations: altered mental status - History of Present Illness Initial Comments: This 89-year-old white female presents from [facility] via EMS for possible pneumonia. She apparently has had an increased cough recently. Her nephew is present initially and he states that she has underlying dementia but her mental status has even been worse the last several days. She apparently has increased confusion. There is no known fever. She apparently has had decreased oral intake. He relates that she has a significant history of tobacco abuse throughout her life. The patient is demented and is unable to give any reliable history herself. Old records relate that she was here approximately 2 months ago for very similar type symptoms and did have pneumonia at that time. No other identifiable complaints or modifying factors. - Related Data Home Medications Medication Instructions Recorded Confirmed Acetaminophen Tab [Tylenol] 650 mg PO Q6H PRN 05/21/16 08/05/16 Ascorbic Acid [Vitamin C] 500 mg PO HS 05/21/16 08/05/16 Aspirin EC [Ecotrin Low Dose] 81 mg PO BID@0800,1600 05/21/16 08/05/16 Butalb/Asprin/Caff 50-325-40Mg 1 cap PO Q24H PRN 05/21/16 08/05/16 [Fiorinal 50-325-40 MG] Docusate [Colace] 100 mg PO BID PRN 05/21/16 08/05/16 Famotidine [Pepcid] 20 mg PO HS@199905/21/16 08/05/16 Ferrous Sulfate [Feosol] 325 mg PO HS 05/21/16 08/05/16 Furosemide [Lasix] 20 mg PO DAILY 05/21/16 08/05/16 Gabapentin [Neurontin] 300 mg PO DAILY 05/21/16 08/05/16 Lidocaine [Lidoderm 5% Patch] 1 patch TRANSDERM DAILY 05/21/16 08/05/16 Losartan-Hctz 50-12.5 mg [Hyzaar 1 tab PO DAILY 05/21/16 08/05/16 50-12.5] Potassium Chloride ER [K-Dur 20] 20 meq PO BID 05/21/16 08/05/16 Sennosides [Senna] 8.6 mg PO DAILY 05/21/16 08/05/16 amLODIPine BESYLATE [Norvasc] 2.5 mg PO DAILY 05/21/16 08/05/16 traZODone HCL 25 mg PO HS@199905/21/16 08/05/16 Dronabinol [Marinol] 2.5 mg PO DAILY 08/05/16 08/05/16 guaiFENesin/CODEINE PHOSPHATE 5 ml PO Q4HR PRN 08/05/16 08/05/16 [Cheratussin AC Syrup] Allergies Allergy/AdvReac Type Severity Reaction Status Date / Time No Known Allergies Allergy Verified 08/05/16 14:51 Review of Systems ROS Statement: Those systems with pertinent positive or pertinent negative responses have been documented in the HPI. ROS Other: All systems not noted in ROS Statement are negative. Past Medical History Past Medical History: Dementia, GERD/Reflux, Hypertension, Renal Disease Additional Past Medical History / Comment(s): The patient is a [facility] resident. She has kyphoscoliosis of the chest. She has history of emphysema/ COPD in addition to dementia and possibly chronic renal insufficiency. Her baseline creatinine is not known to me at this point. 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 VITAL SIGNS: Heart rate, blood pressure, respiratory rate reviewed as recorded in nurse's notes. EYES: Pupils are round and reactive. Extraocular movements are intact. No conjunctival / lid redness or swelling. ENT: No external evidence of injury, swelling, or ecchymosis. Airway is patent. Throat is clear. NECK: Nontender. No swelling or evidence of injury. No subcutaneous emphysema. Trachea is midline. No thyroid mass. HEART: Regular rate and rhythm initially. She is tachycardic with an irregular rhythm later on and ER course. Good peripheral pulses. LUNGS/CHEST: Decreased aeration noted bilaterally with scant wheezing. No ecchymosis, subcutaneous emphysema, or tenderness. ABDOMEN: Abdomen soft without tenderness. No palpable masses or organomegaly. No peritoneal signs. No abdominal wall swelling or ecchymosis. EXTREMITIES: No extremity tenderness. Normal muscle tone and function. No thoracolumbar tenderness. NEUROLOGIC: Sensation is grossly intact. Cranial nerve exam reveals face is symmetrical, tongue is midline, speech is clear. SKIN: No abrasions or ecchymosis is noted. No induration or masses noted. PSYCHIATRIC: Alert and conversant but confused. Limitations: altered mental status Course Vital Signs 08/05/16 08/05/16 08/05/16 14:40 14:49 15:39 Temperature 97.5 F L Pulse Rate 75 96 Respiratory 16 16 Rate Blood Pressure 92/46 O2 Sat by Pulse 98 Oximetry 08/05/16 08/05/16 08/05/16 15:47 15:52 15:58 Temperature Pulse Rate 91 111 H Respiratory 16 Rate Blood Pressure 78/51 93/51 O2 Sat by Pulse 100 Oximetry 08/05/16 08/05/16 16:45 17:17 Temperature Pulse Rate 121 H 112 H Respiratory 16 16 Rate Blood Pressure 86/56 85/56 O2 Sat by Pulse 96 95 Oximetry Medical Decision Making - Medical Decision Making The patient was seen and examined. All diagnostics were reviewed. An IV is started and she is hydrated. She does present hypotensive with a blood pressure 92/46. This does decrease down into the 70s at one point. She had an EKG done initially that shows a normal sinus rhythm at a rate of 85. There is no acute ST-T wave changes identified. The MT interval is 144, QRS duration is 70 and QTC intervals 437. Later on and ER course we did note that her heart rate went up significantly on the hospital monitor and it is irregular rhythm ranging between 140 and 160. A repeat EKG was done and this shows atrial fibrillation with rapid ventricular response at a heart rate of 156. There is multiple new ST-T wave changes noted with some ST depression in leads V2 through V4 consistent with the possibility of a posterior myocardial infarction. There are other associated ST-T wave changes noted diffusely. This potentially could be rate dependent. The QRS duration is 78 and the QTc interval is 435. The ECF was contacted and they relate that she is a no CODE STATUS. The nurse also contacts the guardian who is not the nephew who has a 30 left and the guardian relates that she is supposed to be comfort measures only. Her chest x-ray was completed and this does show evidence of a left lower lobe pneumonia. Radiologist relates that this is improved as compared to previous x-ray in May. There is also underlying interstitial fibrosis. She was given some antibiotics intravenously initially. She will be admitted to the hospital for further symptomatic treatment. Case is discussed with Dr. Clay and he is agreeable to symptomatic treatment, low-dose Cardizem, and antibiotics with admission. - Lab Data Result diagrams: 08/05/16 16:00 08/05/16 16:00 Lab Results 08/05/16 08/05/16 08/05/16 Range/Units 16:00 16:00 16:00 WBC 7.1 (3.8-10.6) k/uL RBC 3.52 L (3.80-5.40) m/uL Hgb 11.4 (11.4-16.0) gm/dL Hct 35.7 (34.0-46.0) % MCV 101.4 H (80.0-100.0) fL MCH 32.4 (25.0-35.0) pg MCHC 32.0 (31.0-37.0) g/dL RDW 14.3 (11.5-15.5) % Plt Count 178 (150-450) k/uL Neutrophils % 69 % Lymphocytes % 21 % Monocytes % 6 % Eosinophils % 0 % Basophils % 0 % Neutrophils # 4.9 (1.3-7.7) k/uL Lymphocytes # 1.5 (1.0-4.8) k/uL Monocytes # 0.4 (0-1.0) k/uL Eosinophils # 0.0 (0-0.7) k/uL Basophils # 0.0 (0-0.2) k/uL Macrocytosis Slight PT 10.4 (9.0-12.0) sec INR 1.0 (<1.1) APTT 28.5 (22.0-30.0) sec Sodium 141 (137-145) mmol/L Potassium 4.5 (3.5-5.1) mmol/L Chloride 107 (98-107) mmol/L Carbon Dioxide 22 (22-30) mmol/L Anion Gap 12 mmol/L BUN 36 H (7-17) mg/dL Creatinine 2.03 H (0.52-1.04) mg/dL Est GFR (MDRD) Af Amer 28 (>60 ml/min/1.73 sqM) Est GFR (MDRD) Non-Af 23 (>60 ml/min/1.73 sqM) Glucose 99 (74-99) mg/dL Plasma Lactic Acid Vincent (0.7-2.0) mmol/L Calcium 8.3 L (8.4-10.2) mg/dL Total Bilirubin 0.5 (0.2-1.3) mg/dL AST 22 (14-36) U/L ALT 22 (9-52) U/L Alkaline Phosphatase 94 (38-126) U/L Total Creatine Kinase (30-135) U/L CK-MB (CK-2) (0.0-2.4) ng/mL CK-MB (CK-2) Rel Index Troponin I (0.000-0.034) ng/mL NT-Pro-B Natriuret Pep pg/mL Total Protein 6.3 (6.3-8.2) g/dL Albumin 3.2 L (3.5-5.0) g/dL 08/05/16 08/05/16 08/05/16 Range/Units 16:00 16:00 16:00 WBC (3.8-10.6) k/uL RBC (3.80-5.40) m/uL Hgb (11.4-16.0) gm/dL Hct (34.0-46.0) % MCV (80.0-100.0) fL MCH (25.0-35.0) pg MCHC (31.0-37.0) g/dL RDW (11.5-15.5) % Plt Count (150-450) k/uL Neutrophils % % Lymphocytes % % Monocytes % % Eosinophils % % Basophils % % Neutrophils # (1.3-7.7) k/uL Lymphocytes # (1.0-4.8) k/uL Monocytes # (0-1.0) k/uL Eosinophils # (0-0.7) k/uL Basophils # (0-0.2) k/uL Macrocytosis PT (9.0-12.0) sec INR (<1.1) APTT (22.0-30.0) sec Sodium (137-145) mmol/L Potassium (3.5-5.1) mmol/L Chloride (98-107) mmol/L Carbon Dioxide (22-30) mmol/L Anion Gap mmol/L BUN (7-17) mg/dL Creatinine (0.52-1.04) mg/dL Est GFR (MDRD) Af Amer (>60 ml/min/1.73 sqM) Est GFR (MDRD) Non-Af (>60 ml/min/1.73 sqM) Glucose (74-99) mg/dL Plasma Lactic Acid Vincent 1.0 (0.7-2.0) mmol/L Calcium (8.4-10.2) mg/dL Total Bilirubin (0.2-1.3) mg/dL AST (14-36) U/L ALT (9-52) U/L Alkaline Phosphatase (38-126) U/L Total Creatine Kinase 67 (30-135) U/L CK-MB (CK-2) 0.8 (0.0-2.4) ng/mL CK-MB (CK-2) Rel Index 1.2 Troponin I 0.018 (0.000-0.034) ng/mL NT-Pro-B Natriuret Pep 1530 pg/mL Total Protein (6.3-8.2) g/dL Albumin (3.5-5.0) g/dL Disposition Clinical Impression: Pneumonia, Pulmonary fibrosis, Atrial fibrillation with rapid ventricular response, Mental status change, Dementia, Hypotension, Acute kidney injury, DNR no code (do not resuscitate), Delirium due to general medical condition Disposition: ADMITTED IP TO THIS [facility] Condition: Critical Referrals: Bryn Clay MD [Primary Care Provider] - 1-2 days Time of Disposition: 18:07 Decision Date: 08/05/16 Decision Time: 18:07
[2016-08-05] MEDS ORDERED: DILTIAZEM 125 MG in SODIUM CHLORIDE 0.9% 100 ML IV ONE (18:04)
[2016-08-05] MEDS ORDERED: PIPERACILLIN-TAZOBACTAM 3.375 GM in DEXTROSE/WATER 1 50ML.BAG IVPB STA (18:07)
[2016-08-05] MEDS ORDERED: IPRATROPIUM-ALBUTEROL 3 ML NEB INHALATION PRN (18:07)
[2016-08-05] MEDS ORDERED: PNEUMONIA PROTOCOL UTILIZED 1 EACH MISC PO PRN (18:07)
[2016-08-05] MEDS ORDERED: VANCOMYCIN 1,000 MG in SODIUM CHLORIDE 0.9% 250 ML IVPB STA (18:11)
[2016-08-05] MEDS ORDERED: IV VANCOMYCIN PER PHARMACY 1 EACH MISC MISCELLANE PRN (18:11)
[2016-08-05] MEDS ORDERED: MORPHINE SULFATE 2 MG/ML SYRINGE IVP PRN (18:12)
[2016-08-05] MEDS ORDERED: HEPARIN SODIUM,PORCINE 5,000 UNIT/ML 1 ML VIAL IV PRN (18:12)
[2016-08-05] MEDS ORDERED: HEPARIN SODIUM,PORCINE 5,000 UNIT/ML 1 ML VIAL IV ONE (18:12)
[2016-08-05] MEDS ORDERED: DOCUSATE 100 MG CAP PO PRN (18:14)
[2016-08-05] MEDS ORDERED: BUTALB/APAP/CAFF 50-325-40MG TAB PO PRN (18:14)
[2016-08-05] MEDS ORDERED: ACETAMINOPHEN TAB 325 MG TAB PO PRN (18:14)
[2016-08-05] MEDS ORDERED: guaiFENesin-Coden 100-10MG/5ML 10 ML CUP PO PRN (18:14)
[2016-08-05] MEDS ORDERED: HEPARIN SODIUM,PORCINE/D5W PMX 25,000 UNIT in DEXTROSE/WATER 1 500ML.BAG IV SCH (18:15)
[2016-08-05] MEDS ORDERED: traZODone HCL 50 MG TAB PO SCH (20:00)
[2016-08-05] MEDS: FAMOTIDINE 20 MG TAB PO SCH (23:15)
[2016-08-05] MEDS: methylPREDNISolone SOD SUCCI 125 MG/2 ML VIAL IV SCH (23:15)
[2016-08-05] MEDS: FERROUS SULFATE 325 MG TAB PO SCH (23:15)
[2016-08-05] MEDS: ASCORBIC ACID 500 MG TAB PO SCH (23:15)
[2016-08-06 00:50] LABS: Creatine Kinase MB 1.8 ng/mL (0.0-2.4)
[2016-08-06 00:55] LABS: Troponin I 0.138 ng/mL (0.000-0.034)
[2016-08-06 06:39] LABS: Glucose,Whole Blood 119 mg/dL (75-99)
[2016-08-06] MEDS: INSULIN LISPRO (humaLOG) 300 UNIT/3 ML VIAL SQ SCH ×4 (06:46→22:29)
[2016-08-06 07:23] LABS: Creatine Kinase MB 3.5 ng/mL (0.0-2.4)
[2016-08-06 07:24] LABS: Troponin I 0.434 ng/mL (0.000-0.034)
[2016-08-06] MEDS ORDERED: GABAPENTIN 300 MG CAP PO SCH (09:00)
[2016-08-06] MEDS ORDERED: ASPIRIN 325 MG TAB PO SCH (09:00)
[2016-08-06] MEDS: PIPERACILLIN-TAZOBACTAM 3.375 GM in DEXTROSE/WATER 1 50ML.BAG IVPB SCH ×2 (09:30→22:35)
[2016-08-06] MEDS: methylPREDNISolone SOD SUCCI 125 MG/2 ML VIAL IV SCH ×4 (10:41→22:28)
[2016-08-06] MEDS: DRONABINOL 2.5 MG CAP PO SCH (10:43)
[2016-08-06] MEDS: SENNOSIDES 8.6 MG TAB PO SCH (10:45)
--- NOTE | 2016-08-06 11:18 | P.CRDCN ---
History of Present Illness Consult date: 08/06/16 Requesting physician: Bryn Clay Reason for Consult (text): Abnormal troponins Chief complaint: Increased cough and shortness of breath History of present illness: This is an 89-year-old female who [facility], she has a moderate to severe dementia, hypertension, renal failure, GERD, paroxysmal atrial fibrillation, was seen most recently in the hospital in May of this year admitted at that time with pneumonia and possible sepsis. She was brought to the hospital again on this occasion because of persistent productive cough and mild fevers. Echocardiogram with Doppler study which was performed in May of this year revealed an ejection fraction of 50-55%. EKG on arrival here showed a normal sinus rhythm with no acute changes. Subsequent to her arrival here, patient did go into atrial fibrillation with rapid ventricular response and was initiated on IV Cardizem and IV heparin. Morning EKG performed shows a normal sinus rhythm with nonspecific ST-T wave changes. Patient's heart rate at 1.2 was down to the 40s, her Cardizem drip was discontinued. She continues to be on IV heparin. Chest x-ray reveals patchy lower lobe pneumonia mildly improved from prior exam. There is a clearing of a left pleural effusion. Evidence of underlying moderate pulmonary interstitial fibrosis is also seen. The pressure on arrival here 92/56. Blood pressure this morning 113/60 with a heart rate in the 80s. CBC normal, potassium 4.5, BUN 36, creatinine 2.03. Creatinine in May 1.44. Troponin 0.018, 0.13, 0.434, BNP level 1530. At the time of my examination this morning, her nephew is at the bedside,She really is unsure exactly of why she is here, she does not even know that she is in the hospital. She denies any shortness of breath, patient does continue to have a cough. Denies any chest discomfort at present. Past Medical History Past Medical History: Heart Failure, COPD, Dementia, GERD/Reflux, Hyperlipidemia , Hypertension, Pneumonia, Renal Disease Additional Past Medical History / Comment(s): The patient is a [facility]. She has kyphoscoliosis of the chest. She has history of emphysema/ COPD in addition to dementia and possibly chronic renal insufficiency. 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 , bilateral hip replacement Past Anesthesia/Blood Transfusion Reactions: No Reported Reaction Past Psychological History: Anxiety, Depression Smoking Status: Former smoker Past Alcohol Use History: Unable to Obtain Past Drug Use History: None Reported - Past Family History Father Family Medical History: Unable to Obtain Medications and Allergies Home Medications Medication Instructions Recorded Confirmed Type Acetaminophen Tab [Tylenol] 650 mg PO Q6H PRN 05/21/16 08/05/16 History Ascorbic Acid [Vitamin C] 500 mg PO HS 05/21/16 08/05/16 History Aspirin EC [Ecotrin Low Dose] 81 mg PO BID@0800,1600 05/21/16 08/05/16 History Butalb/Asprin/Caff 50-325-40Mg 1 cap PO Q24H PRN 05/21/16 08/05/16 History [Fiorinal 50-325-40 MG] Docusate [Colace] 100 mg PO BID PRN 05/21/16 08/05/16 History Famotidine [Pepcid] 20 mg PO HS@199905/21/16 08/05/16 History Ferrous Sulfate [Feosol] 325 mg PO HS 05/21/16 08/05/16 History Furosemide [Lasix] 20 mg PO DAILY 05/21/16 08/05/16 History Gabapentin [Neurontin] 300 mg PO DAILY 05/21/16 08/05/16 History Lidocaine [Lidoderm 5% Patch] 1 patch TRANSDERM DAILY 05/21/16 08/05/16 History Losartan-Hctz 50-12.5 mg [Hyzaar 1 tab PO DAILY 05/21/16 08/05/16 History 50-12.5] Potassium Chloride ER [K-Dur 20] 20 meq PO BID 05/21/16 08/05/16 History Sennosides [Senna] 8.6 mg PO DAILY 05/21/16 08/05/16 History amLODIPine BESYLATE [Norvasc] 2.5 mg PO DAILY 05/21/16 08/05/16 History traZODone HCL 25 mg PO HS@199905/21/16 08/05/16 History Dronabinol [Marinol] 2.5 mg PO DAILY 08/05/16 08/05/16 History guaiFENesin/CODEINE PHOSPHATE 5 ml PO Q4HR PRN 08/05/16 08/05/16 History [Cheratussin AC Syrup] Allergies Allergy/AdvReac Type Severity Reaction Status Date / Time No Known Allergies Allergy Verified 08/05/16 14:51 Physical Exam Vitals: Vital Signs Temp Pulse Pulse Resp BP BP Pulse Ox 08/06/16 08:00 98.1 F 89 18 113/67 90 L 08/06/16 03:30 96.4 F L 73 24 131/66 97 08/05/16 23:30 96.8 F L 63 18 73/40 91 L 08/05/16 20:15 97.1 F L 133 H 14 77/46 93 L 08/05/16 19:23 136 H 14 68/44 92 L 08/05/16 19:15 151 H 12 66/35 93 L 08/05/16 18:53 97.8 F 141 H 12 61/47 89 L 08/05/16 18:44 145 H 16 81/53 Intake and Output 08/05/16 08/06/16 08/06/16 22:59 06:59 14:59 Intake Total 98.679 180 Balance 98.679 180 Intake: Intake, IV Titration 98.679 Amount Diltiazem 125 mg In 23.667 Sodium Chloride 0.9% 100 ml @ 5 MG/HR 5 mls/hr IV .Q24H [facility] Rx#:[id number] Heparin Sodium,Porcine/ 75.012 D5w Pmx 25,000 unit In Dextrose/Water 1 500ml. bag @ 12 UNITS/KG/HR 11. 97 mls/hr IV .Q24H [facility] Rx #:[id number] Oral 0 180 Other: Voiding Method Diaper Toilet Incontinent Diaper # Voids 1 # Bowel Movements 1 Weight 50 kg 54 kg PHYSICAL EXAMINATION: HEENT: Head is atraumatic, normocephalic. Pupils equal, round. Neck is supple. There is no elevated jugular venous pressure. HEART EXAMINATION: Heart S1 and S2 1 systolic murmur is heard. CHEST EXAMINATION: Lungs reveal coarse rales bilaterally. ABDOMEN: Soft, nontender. Bowel sounds are heard. No organomegaly noted. EXTREMITIES: 2+ peripheral pulses with no evidence of peripheral edema and no calf tenderness noted. NEUROLOGIC [patient is awake, confused. Results 08/05/16 16:00 08/05/16 16:00 Cardiac Enzymes 08/06/16 08/06/16 Range/Units 00:08 05:32 CK-MB (CK-2) 1.8 3.5 H* (0.0-2.4) ng/mL Troponin I 0.138 H* 0.434 H* (0.000-0.034) ng/mL Coagulation 08/06/16 08/06/16 Range/Units 00:08 05:32 APTT 156.6 H* 57.6 H (22.0-30.0) sec Current Medications Generic Name Dose Route Start Last Admin Trade Name Freq PRN Reason Stop Dose Admin Acetaminophen 650 mg 08/05/16 18:14 Tylenol Tab PO Q6H PRN Mild Pain Acetaminophen/Butalbital/Caffeine 1 each 08/05/16 18:14 Fioricet 50-325-40 PO Q24H PRN Migraine Headache Albuterol/Ipratropium 3 ml 08/05/16 18:07 Duoneb 0.5 Mg-3 Mg/3 Ml Soln INHALATION RT-Q4H PRN shortness of breath Ascorbic Acid 500 mg 08/05/16 21:00 08/05/16 23:15 Vitamin C PO 500 mg HS [facility] Administration Aspirin 325 mg 08/06/16 09:00 08/06/16 10:41 Aspirin PO 325 mg DAILY [facility] Administration Docusate Sodium 100 mg 08/05/16 18:14 Colace PO BID PRN Constipation Dronabinol 2.5 mg 08/06/16 09:00 08/06/16 10:43 Marinol PO 2.5 mg DAILY [facility] Administration Famotidine 20 mg 08/05/16 20:00 08/05/16 23:15 Pepcid PO 20 mg HS@2000 [facility] Administration Ferrous Sulfate 325 mg 08/05/16 21:00 08/05/16 23:15 Feosol PO 325 mg HS [facility] Administration Guaifenesin/Codeine Phosphate 5 ml 08/05/16 18:14 Robitussin Ac PO Q4HR PRN Cough Heparin Sodium (Porcine) 0 unit 08/05/16 18:12 Heparin IV Q6HR PRN Low PTT Protocol Diltiazem HCl 125 mg/ Sodium 125 mls @ 5 mls/hr 08/05/16 18:04 08/05/16 23:30 Chloride IV 08/06/16 18:03 0 mg/hr .Q24H ONE 0 mls/hr 5 MG/HR Infusion Heparin Sodium/Dextrose 25,000 500 mls @ 11.97 mls/hr 08/05/16 18:15 02:20 unit/ IV Solution IV 9 units/kg/hr .Q24H [facility] 8.98 mls/hr Protocol Titration 12 UNITS/KG/HR Piperacillin/Tazobactam/ 50 mls @ 12.5 mls/hr 08/06/16 09:00 08/06/16 09:30 Dextrose 3.375 gm/ IV Solution IVPB 12.5 mls/hr Q12HR [facility] Administration Insulin Human Lispro 0 unit 08/06/16 07:30 08/06/16 06:46 Humalog SQ Not Given ACHS [facility] Protocol Methylprednisolone Sodium Succinate 60 mg 08/05/16 22:00 08/06/16 10:41 Solu-Medrol IV 60 mg QID [facility] Administration Miscellaneous Information 1 each 08/05/16 18:11 Pharmacy To Dose Iv Vancomycin MISCELLANE DIRECTED PRN Per Protocol Miscellaneous Information 1 each 08/05/16 18:07 Pneumonia Protocol Utilized PO ONCE PRN Per Protocol Morphine Sulfate 2 mg 08/05/16 18:12 Morphine Sulfate (Inj) IVP Q2H PRN Severe Pain Senna 8.6 mg 08/06/16 09:00 08/06/16 10:45 Senokot PO Not Given DAILY [facility] Intake and Output 08/05/16 08/06/16 08/06/16 22:59 06:59 14:59 Intake Total 98.679 180 Balance 98.679 180 Intake: Intake, IV Titration 98.679 Amount Diltiazem 125 mg In 23.667 Sodium Chloride 0.9% 100 ml @ 5 MG/HR 5 mls/hr IV .Q24H [facility] Rx#:[id number] Heparin Sodium,Porcine/ 75.012 D5w Pmx 25,000 unit In Dextrose/Water 1 500ml. bag @ 12 UNITS/KG/HR 11. 97 mls/hr IV .Q24H [facility] Rx #:[id number] Oral 0 180 Other: Voiding Method Diaper Toilet Incontinent Diaper # Voids 1 # Bowel Movements 1 Weight 50 kg 54 kg EKG Interpretations (text) Initial EKG shows normal sinus rhythm with no acute changes, subsequent EKG shows atrial fibrillation with rapid ventricular response Assessment and Plan Plan: Assessment and plan #1 symptoms of persistent productive cough, evidence of pneumonia on the chest x -ray. Patient is currently on IV antibiotics. #2 paroxysmal atrial fibrillation, patient not a candidate for anticoagulation because of severe dementia. #3 hypertension #4 acute on chronic renal failure # 5 GERD #6 severe dementia #7 abnormal troponins, cannot rule out acute coronary syndrome, continue medical therapy. Echocardiogram with Doppler study performed in May of this year revealed normal left ventricular systolic function. Plan We'll discontinue the patient's IV heparin, decrease aspirin dose to 81 mg daily. Cardizem drip has been discontinued. We will start the patient on Lopressor 12-1/2 mg one tablet by mouth twice a day discontinue the Norvasc. Increase IV fluids to 75 mL per hour. Check lytes BUN and creatinine in the morning. DNP note has been reviewed, I agree with a documented findings and plan of care. Patient was seen and examined.
--- NOTE | 2016-08-06 11:52 | HP ---
DATE OF ADMISSION: 08/05/2016 CHIEF COMPLAINT: An 89-year-old white female came into the hospital with increased lethargic, cough, congestion, shortness of breath and altered mental status. She has worsening dementia and increased confusion last week, worse over the last couple days. She is an ex-smoker for multiple years. History of diastolic CHF and leg edema. HOME MEDICATIONS: 1. Tylenol. 2. Vitamin C. 3. Aspirin. 4. Fioricet. 5. Colace. 6. Pepcid. 7. Feosol. 8. Lasix. 9. Neurontin. 10. Lidoderm patch. 11. Hyzaar. 12. K-Dur. 13. Senna. 14. Norvasc. 15. Marinol. ALLERGIES: Negative. REVIEW OF SYSTEMS: Fourteen-point review of systems negative except for as mentioned in HPI. PAST MEDICAL HISTORY: Dementia. GERD, Hypertension, renal disease, COPD, chronic renal insufficiency, diastolic congestive heart failure. Toe amputation left foot, bilateral hip replacement. Anxiety, depression. SOCIAL HISTORY: Former smoker. PHYSICAL EXAM: Well-nourished well-hydrated, pupils equal, round, and reactive to light and accommodation. ENT: External ear canals within normal limits. NECK: Supple. No mass. HEART: Regular rate and rhythm. No murmurs, rubs, gallops. LUNGS: Show scattered wheeze, diffuse. ABDOMEN: Soft. EXTREMITIES: No cyanosis, clubbing, edema, no rashes, excoriation, bruising. Mild stasis changes of the lower legs. PSYCH: Alert, confused. LUNGS: Show scattered wheeze, decreased breath sounds x4. Regular rate and rhythm and then she went into irregular rhythm with heart rate into the 150s, pulse is 70s to 90s systolic over 50s. Heart rate 91 to 150s, O2 sat 96%, EKG nonspecific ST-T changes. Guardian wants the patient NO CODE. She has acute on chronic renal insufficiency also with BUN 36, creatinine 2.03, normal white count and negative troponin and BNP 1530. ASSESSMENT: 1. Pneumonia. 2. Pulmonary fibrosis. 3. Atrial fibrillation with rapid ventricular response. 4. Mental status change. 5. Dementia. 6. Hypertension. 7. Acute renal injury. 8. DNR. 9. Delirium. PLAN: Will treat her with IV antibiotics, Cardizem drip. Cardiology and pulmonary consult. PROGNOSIS: Guarded though at this time and she is DNR. Guardian was contacted by ER and wants her just to be made comfortable and no acute drastic measures to her care.
[2016-08-06 12:00] LABS: Glucose,Whole Blood 114 mg/dL (75-99)
[2016-08-06] MEDS: SODIUM CHLORIDE 0.9% 1,000 ML IV SCH (12:00)
[2016-08-06] MEDS: LORazepam 2 MG/ML SYRINGE IV PRN (12:00)
--- NOTE | 2016-08-06 12:42 | CONS ---
DATE OF CONSULTATION: 08/06/2016 REASON FOR CONSULTATION: Shortness of breath. HISTORY OF PRESENTING ILLNESS: Ms. Fátima Arana is an 89-year-old female who is seen, evaluated and examined on the sixth floor. She is slightly anxious, agitated. She has borderline oxygen saturation of 90%. She has advanced dementia and Alzheimer's disease, cannot obtain a detailed history. Patient presented into the emergency department with increasing shortness of breath and evaluation for pneumonia. Patient was brought into the center by the EMS. It appears that in the last few days patient has more than cough and has been more short of breath. In addition to that, has been more agitated, anxious with alteration of mental status with more confusion. Patient has not been eating much. She does have a history of extensive smoking and nicotine use. With those problems, patient has been brought into the emergency department, seen, evaluated, and examined and has been admitted to the hospital. Patient has a history of prior pneumonia about 2 months ago. Past medical history is significant for dementia, GERD, hypertension, renal failure, resident of extended-care facility, severe kyphoscoliosis, end-stage lung disease, severe COPD, emphysema, chronic renal failure. Past surgical history is significant for orthopedic surgery, history of toe amputation from left foot, bilateral hip arthroplasty. FAMILY HISTORY AND SOCIAL HISTORY: Resident of extended-care facility, extensive history of smoking and nicotine use. Details; however, are not available at this time. Allergies include no known drug allergy. Medications at home include Guaifenesin, codeine cough syrup as needed, Marinol 2.5 mg daily, Trazodone 25 mg daily, amlodipine is 2.5 mg daily, senna as needed, potassium is 20 mEq 2 times a day, losartan-hydrochlorothiazide 50/12.5 once daily, Lidocaine patch, Neurontin, Lasix 20 mg daily, Feosol, Pepcid. Current medications while in the hospital include as above. Also on DuoNeb unit dose updraft 4 times a day, drip Cardizem for A. fib which just has been stopped. Patient is also on heparin drip and has developed a large hematoma on the left arm with externalization, which is being stopped at this point in time. Cardiovascular Service is about to evaluate this patient as well. Other medications include Solu-Medrol 60 q.6 hourly, sliding scale insulin, K-mag phos replacement protocol and Zosyn. As per discussion with the staff, she expressed that patient is a DNR by Advanced Directive and being considered possibly for comfort measures as well. On examination, most recent vitals include blood pressure is 70/50, respiratory rate in mid 20s, heart rate 73, temperature 98, saturation of 97% on 3 L, 90% to 92% on room air, temperature is 96.4. HEENT: Atraumatic, normocephalic. Pharynx is clear. Narrow pharyngeal opening is present. Neck supple without lymphadenopathy, jugular venous distention or carotid bruit. LUNGS: Bilateral good air entry with expiratory fine rhonchi, a few crackles at bases cannot be excluded. HEART: Regular rate and rhythm. S1, S2 audible. Abdomen is soft. No rebound or rigidity. EXTREMITIES: +1 peripheral pulses. NEUROLOGICAL EXAMINATION: Awake, opens eyes. Follows simple commands, somewhat anxious. Examination of the extremities on the left upper extremity forearm there extravasation of heparin noted with small hematoma. Labs are reviewed. White cell count 7,100, hemoglobin and hematocrit 11 and 35, platelet count of 178,000. PT, INR, PTT normal on arrival, later this went up to 156 L, 57. Chemistry otherwise, BUN and creatinine 36 and 2.03. The rest of them within normal limits. CK-MB is rising 0.8, 1.8 and 3.5. The troponin went up to 0.434. The EKG performed at the time of admission reviewed revealed A. fib with rapid ventricular response, ST segment abnormality has been noted with depression suggestive of ischemic injury. The chest x-ray performed in the hospital revealed patchy left lower lobe pneumonia; however, improved compared to prior exam. A small left-sided pleural effusion is seen, extensive pulmonary fibrosis was noted as well. IMPRESSION: 1. Acute hypoxic respiratory failure. 2. Left lower lobe pneumonia. 3. Atrial fibrillation with rapid ventricular response, now patient spontaneously converted back to sinus. 4. Acute non-ST segment elevated myocardial infarction with a rising troponin. 5. Hypotension, likely related to multifactorial process including acute myocardial infarction, atrial fibrillation and low grade systemic inflammatory response system-like process sepsis related to pneumonia. Plan is agree with steroids, breathing treatments, antibiotics. Doubt that patient is a candidate for further aggressive intervention given her marginal respiratory status and an OH. Cardiovascular Service is following above to evaluate this patient. Veronica with plans for supportive and comfort care short of aggressive intervention. Noted that patient is NO CODE. Will continue current supportive care. Follow closely.
--- NOTE | 2016-08-06 13:51 | PN ---
SUBJECTIVE: White female with pneumonia, atrial fibrillation with rapid ventricular response, acute renal failure. The patient up, answered questions appropriately stating she does not know what she is doing here, not doing anything to help me. Discussed case with cardiology. The patient has elevated troponins, will be started on a low-dose beta karina. No anticoagulation secondary to dementia. The patient has been treated with IV vancomycin and IV Zosyn secondary to gram-negative pneumonia from retirement. Acute on chronic renal insufficiency will be treated with IV fluids. CARDIOVASCULAR: S1, S2. LUNGS: Scattered wheeze x4, scattered rhonchi. HEMATOLOGIC: Negative Homans. PSYCHIATRIC: Fair mood and affect. NEUROLOGIC: Alert and oriented x3. VASCULAR: Normal dorsalis pedis, posterior tibial, and radial pulse. ASSESSMENT: 1. Acute respiratory ( ) heart failure. 2. Hypoxemic, heart failure. 3. Gram-negative pneumonia. Continue with vancomycin and Zosyn. Vancomycin and Zosyn will be continued through the IV. 4. Possible myocardial infarction non- STEMI will continue on current treatments which include beta karina, possibly low dose aspirin. Trazodone was stopped due to possible confusion. ( ) stopped due to possible confusion. Dementia group home. Prognosis extremely guarded.
[2016-08-06] MEDS ORDERED: VANCOMYCIN 1,000 MG in SODIUM CHLORIDE 0.9% 250 ML IVPB ONE (16:00)
[2016-08-06 16:57] LABS: Glucose,Whole Blood 117 mg/dL (75-99)
[2016-08-06] MEDS: METOPROLOL TARTRATE 12.5 MG TAB PO SCH ×2 (18:05→22:29)
[2016-08-06 20:11] LABS: Glucose,Whole Blood 153 mg/dL (75-99)
[2016-08-06] MEDS ORDERED: METOPROLOL TARTRATE 12.5 MG TAB PO SCH (21:00)
[2016-08-06] MEDS: FAMOTIDINE 20 MG TAB PO SCH (22:44)
[2016-08-06] MEDS: ASCORBIC ACID 500 MG TAB PO SCH (22:44)
[2016-08-06] MEDS: FERROUS SULFATE 325 MG TAB PO SCH (22:44)
[2016-08-07] MEDS: LORazepam 2 MG/ML SYRINGE IV PRN (00:01)
[2016-08-07] MEDS: SODIUM CHLORIDE 0.9% 1,000 ML IV SCH ×2 (04:53→17:54)
[2016-08-07 07:09] LABS: Glucose,Whole Blood 141 mg/dL (75-99)
[2016-08-07] MEDS: DRONABINOL 2.5 MG CAP PO SCH (07:22)
[2016-08-07] MEDS: SENNOSIDES 8.6 MG TAB PO SCH (07:22)
[2016-08-07] MEDS: INSULIN LISPRO (humaLOG) 300 UNIT/3 ML VIAL SQ SCH ×4 (07:22→23:58)
[2016-08-07] MEDS: methylPREDNISolone SOD SUCCI 125 MG/2 ML VIAL IV SCH (07:22)
[2016-08-07] MEDS: METOPROLOL TARTRATE 12.5 MG TAB PO SCH ×2 (07:22→20:51)
[2016-08-07] MEDS: ASPIRIN 81 MG CHEW PO SCH (07:22)
[2016-08-07] MEDS: PIPERACILLIN-TAZOBACTAM 3.375 GM in DEXTROSE/WATER 1 50ML.BAG IVPB SCH ×2 (11:02→20:50)
[2016-08-07] MEDS: VANCOMYCIN 1,250 MG in SODIUM CHLORIDE 0.9% 250 ML IVPB SCH (11:03)
[2016-08-07 11:35] LABS: Glucose,Whole Blood 87 mg/dL (75-99)
--- NOTE | 2016-08-07 11:42 | ECHOF ---
Referral Reason:dyspnea MEASUREMENTS -------- HEIGHT: 175.3 cm WEIGHT: 54.0 kg BP: 117/71 IVSd: 1.3 cm (0.6 - 1.1) LVIDd: 2.3 cm (3.9 - 5.3) LVPWd: 1.4 cm (0.6 - 1.1) IVSs: 1.6 cm LVIDs: 1.4 cm LVPWs: 1.5 cm LAESV Index (A-L): 45.42 ml/m Ao Diam: 3.2 cm (2.0 - 3.7) AV Cusp: 1.7 cm (1.5 - 2.6) LA Diam: 3.2 cm (2.7 - 3.8) MV EXCURSION: 14.273 mm (> 18.000) MV EF SLOPE: 109 mm/s (70 - 150) EPSS: 0.9 cm MV E Gerson: 0.98 m/s MV DecT: 277 ms MV A Gerson: 0.81 m/s MV E/A Ratio: 1.21 AV maxP.47 mmHg AV meanP.11 mmHg AR PHT: 141 ms RAP: 20.00 mmHg RVSP: 54.29 mmHg FINDINGS -------- Sinus rhythm with extra systolic beats. This was a technically adequate study. The left ventricular size is normal. There is mild concentric left ventricular hypertrophy. Overall left ventricular systolic function is normal with, an EF between 55 - 60 %. The right ventricle is normal in size and function. LA is severely dilated >40 ml/m2 RA appears enlarged. Aortic valve is trileaflet and is moderately thickened. Trace amount of aortic regurgitation. There is mild aortic stenosis present. Peak/mean gradient across the Aortic Valve is 16.47mmHg / 7.11mmHg. Mild mitral annular calcification present. Moderate mitral regurgitation is present. Moderate to severe tricuspid regurgitation present. There is moderate pulmonary hypertension. The right ventricular systolic pressure, as measured by Doppler, is 54.29mmHg. The pulmonic valve was not well visualized. Trace/mild (physiologic) pulmonic regurgitation. The aortic root size is normal. There is no pericardial effusion. CONCLUSIONS -------- 1. Sinus rhythm with extra systolic beats. 2. Peak/mean gradient across the Aortic Valve is 16.47mmHg / 7.11mmHg. 3. Mild mitral annular calcification present. 4. The right ventricular systolic pressure, as measured by Doppler, is 54.29mmHg. 5. The pulmonic valve was not well visualized. 6. The aortic root size is normal. 7. There is no pericardial effusion. 8. This was a technically adequate study. 9. There is mild concentric left ventricular hypertrophy. 10. Overall left ventricular systolic function is normal with, an EF between 55 - 60 %. 11. LA is severely dilated >40 ml/m2 12. RA appears enlarged. 13. Aortic valve is trileaflet and is moderately thickened. 14. Trace amount of aortic regurgitation. 15. There is mild aortic stenosis present. INSULATION WORKER INTERIOR SURFACE: Amparo Teixeira RDCS
--- NOTE | 2016-08-07 12:04 | P.PN ---
Subjective 89-year-old female who is resting in bed pleasantly confused oriented to self only nursing reports the patient does get easily agitated. Patient is a resident at [facility] facility [facility]. Patient has advanced dementia with Alzheimer's. Patient's initial presentation to the emergency room was with shortness of breath. Patient was brought in after the care providers at the facility activated the EMS system. Patient does have a significant past medical history of nicotine dependency with severe COPD end-stage lung disease. Currently the patient's being followed by pulmonology service patients being treated for left lower lobe pneumonia. Did note the patient's advanced directives indicates a no CODE STATUS Cardiology consultation was requested. Patient's initial presentation to the emergency room was atrial fibrillation with a rapid ventricular response was initiated on IV Cardizem drip and IV heparin. The following morning the 12- lead EKG showed sinus bradycardic heart rate in the 40s the Cardizem drip was stopped. The BNP was elevated at 1500 cardiology indicate the patient has paroxysmal atrial fibrillation and is not candidate for anticoagulation secondary to patient's severe dementia with increased risk of falls. The abnormal troponin were noted could not exclude an acute coronary syndrome at this time they recommended medical therapy only patient had an echocardiogram done in May this year it showed normal LV function. They recommended continuing patient on a baby aspirin 81 mg daily hold on starting a beta karina and monitor Objective - Vital Signs Vital signs: Vital Signs Temp 98.0 F 08/07/16 08:00 Pulse 64 08/07/16 08:00 Resp 16 08/07/16 08:00 BP 125/66 08/07/16 08:00 Pulse Ox 93 L 08/07/16 08:00 Intake & Output 08/06/16 08/07/16 08/07/16 18:59 06:59 18:59 Intake Total 480 475 240 Balance 480 475 240 Weight 54.1 kg Intake: Intake, IV Titration 200 375 Amount Sodium Chloride 0.9% 1, 200 375 000 ml @ 75 mls/hr IV . [id number] [facility] Rx#:[id number] Oral 280 100 240 Other: Voiding Method Bedside Commode Bedside Commode Diaper Diaper # Voids 1 1 - Exam Physical exam 89-year-old female resting in bed pleasant oriented to self only does not consistently follow simple commands yelling out loud at times lungs fine crackles at the bases otherwise adequate air movement on room air sats are 93% Heart S1-S2 audible and regular monitor currently is showing sinus bradycardia heart rate in the 40s Abdomen soft nontender Extremities no edema noted - Labs CBC & Chem 7: 08/05/16 16:00 08/05/16 16:00 Labs: Abnormal Lab Results - Last 24 Hours (Table) 08/06/16 08/06/16 08/06/16 Range/Units 11:46 16:51 19:55 POC Glucose (mg/dL) 114 H 117 H 153 H (75-99) mg/dL 08/07/16 Range/Units 07:03 POC Glucose (mg/dL) 141 H (75-99) mg/dL Assessment and Plan Plan: Impression Present on admission shortness of breath suspect due to left lower lobe pneumonia Present on admission atrial fibrillation with a rapid ventricular response Paroxysmal atrial fibrillation not a candidate for anticoagulation due to increased risk of falls due to severe dementia essential hypertension Abnormal troponin present on admission cannot rule out acute coronary syndrome medical management only Sinus bradycardic episodes Echocardiogram with Doppler study performed in May normal LV systolic function Acute on chronic renal failure stage 4 chronic physical debility limited mobility suspect due to advanced dementia Present on admission acute metabolic encephalopathy different from baseline Present on admission hypotensive systolic pressure in the 70s with heart rate in the 111- 120 Present on admission acute hypoxic respiratory failure suspect due to left lower lobe pneumonia Hypotensive present on admission systolic blood pressure in the 70s multifactorial suspect due to atrial fibrillation with rapid ventricular response with an acute myocardial infarction not ruled out Advance directives indicates patient is a no CODE STATUS Lifelong smoker greater than a 40 year history Emphysema COPD was no evidence of exacerbation Hyperglycemic likely due to episodes steroid-induced Episodes of agitation Plan Continue recommendations by pulmonology service 50s Solu-Medrol as ordered Cardiology's recommendations aspirin only daily Lopressor 12.5 twice a day with parameters Resume home meds as appropriate IV antibiotics as ordered vancomycin and Zosyn DVT and GI prophylaxis The above dictated assessment and findings were discussed with dr hernandes. Impression and the plan of care have been dictated as directed. Umm Oakley nurse practitioner acting as a scribe for dr fuentes ].
[2016-08-07 12:17] VITALS: BMI 17.6
[2016-08-07 16:30] LABS: Glucose,Whole Blood 151 mg/dL (75-99)
--- NOTE | 2016-08-07 17:46 | PN ---
DATE OF SERVICE: 08/07/2016. HISTORY OF PRESENT ILLNESS: The patient is an 89-year-old female who initially came in with increased difficulty with breathing. She does have a significant history of dementia. She was admitted with acute hypoxic respiratory failure and left lower lobe pneumonia. In addition, she has problems with atrial fibrillation with a rapid ventricular response. The patient is seen today. She is quite confused. She states that she is doing much better now that she is seen me and she has never met me before. The patient states that she has been having some nausea, vomiting though staff denies this. Her appetite is poor. She has not been eating. She has had no chest pain. She denies any pain at this time. She appears relatively comfortable. She does have a significant history for severe chronic obstructive pulmonary disease, end-stage. She did have echocardiogram done, which showed an EF of 55% to 60% with moderate pulmonary hypertension with measurement being 54.29 mmHg noted. On physical examination, her vital signs show temperature of 98, heart rate 64, respiratory rate 16, blood pressure is 125/66, oxygen saturation 93% on room air. Labs for today show a glucose of 87. Blood cultures with no growth. GENERAL: She is an 89-year-old female who appears comfortable is definitely confused. HEENT: Pupils are reactive. Mucous membranes are moist. NECK: Supple. Trach is midline. Lung sounds coarse. A few rales posteriorly. CARDIOVASCULAR: S1 and S2 is heard; regular quite, tachy at this time. ABDOMEN: Soft, nontender. EXTREMITIES: No edema. Pulses are palpable. NEUROLOGIC: She is awake and confused. IMPRESSION: 1. Acute hypoxic respiratory failure. 2. Left lower lobe pneumonia. 3. Atrial fibrillation with a rapid ventricular response more proximal where she has been sinus salty also. 4. Hypotension. 5. Dementia. 6. Abnormal troponins on admission. 7. Moderate pulmonary hypertension. 8. Acute on chronic renal failure stage IV. PLAN: Will continue patient with her present medications. Her steroids have been adjusted. Continue with nebulizer treatments. Continue with antibiotic therapy. We will order labs for the morning and repeat chest x-ray. We will continue to follow patient with you and make further changes as necessary. I performed a history and physical examination of this patient and discussed the same with the dictator. I agree with the dictator's note. Any additional findings/opinions, etc. will be noted.
[2016-08-07] MEDS: methylPREDNISolone SOD SUCCI 40 MG/ML 1 ML VIAL IV SCH ×2 (17:53→23:58)
[2016-08-07] MEDS: FAMOTIDINE 20 MG TAB PO SCH (20:50)
[2016-08-07] MEDS: ASCORBIC ACID 500 MG TAB PO SCH (20:50)
[2016-08-07] MEDS: FERROUS SULFATE 325 MG TAB PO SCH (20:51)
[2016-08-07 23:58] LABS: Glucose,Whole Blood 141 mg/dL (75-99)
[2016-08-08] MEDS: SODIUM CHLORIDE 0.9% 1,000 ML IV SCH (05:27)
[2016-08-08] MEDS: INSULIN LISPRO (humaLOG) 300 UNIT/3 ML VIAL SQ SCH ×2 (05:33→12:36)
[2016-08-08 05:35] LABS: Glucose,Whole Blood 145 mg/dL (75-99)
[2016-08-08 07:34] LABS: Basophils % (A) 0 %; CH 31.7; CHCM 31.7; Eosinophils % (A) 0 %; HCT 36.5 % (34.0-46.0); HGB 11.9 gm/dL (11.4-16.0); Hypochromasia Slight; Luc # (Auto) 0.08; Luc % (Auto) 1; Lymphocytes # (A) 0.3 k/uL (1.0-4.8); Lymphocytes % (A) 3 %; MCH 32.6 pg (25.0-35.0); MCHC 32.5 g/dL (31.0-37.0); MCV 100.3 fL (80.0-100.0); Macrocytosis Slight; Mean Platelet Volume 7.2; Monocytes # (A) 0.3 k/uL (0-1.0); Monocytes % (A) 3 %; Neutrophils # (A) 8.8 k/uL (1.3-7.7); Neutrophils % (A) 93 %; RBC 3.64 m/uL (3.80-5.40); RDW 14.2 % (11.5-15.5); WBC 9.4 k/uL (3.8-10.6); WBC (Perox) 9.66
[2016-08-08 07:46] LABS: Calcium 8.5 mg/dL (8.4-10.2); Magnesium 2.1 mg/dL (1.6-2.3); Total Bilirubin 0.5 mg/dL (0.2-1.3); Total Protein 6.1 g/dL (6.3-8.2)
--- NOTE | 2016-08-08 07:55 | XR ---
EXAMINATION TYPE: XR chest 1V DATE OF EXAM: 08/08/2016 7:24 AM COMPARISON: 08/05/2016 HISTORY: Pneumonia follow-up TECHNIQUE: Single frontal view of the chest is obtained. FINDINGS: Hyperinflation compatible COPD. Borderline cardiomegaly and diffuse osteopenia noted. Left lower lobe infiltrate and small effusion. No pneumothorax. IMPRESSION: Left lower lobe infiltrate and small effusion. Correlate for COPD.
[2016-08-08] MEDS: PIPERACILLIN-TAZOBACTAM 3.375 GM in DEXTROSE/WATER 1 50ML.BAG IVPB SCH (08:40)
[2016-08-08] MEDS: ASPIRIN 81 MG CHEW PO SCH (08:40)
[2016-08-08] MEDS: SENNOSIDES 8.6 MG TAB PO SCH (08:40)
[2016-08-08] MEDS: DRONABINOL 2.5 MG CAP PO SCH (08:40)
[2016-08-08] MEDS: METOPROLOL TARTRATE 12.5 MG TAB PO SCH (08:40)
[2016-08-08] MEDS: methylPREDNISolone SOD SUCCI 40 MG/ML 1 ML VIAL IV SCH (08:41)
[2016-08-08] MEDS ORDERED: SODIUM CHLORIDE 0.45% 1,000 ML IV SCH (11:15)
[2016-08-08 12:12] LABS: Glucose,Whole Blood 119 mg/dL (75-99)
--- NOTE | 2016-08-08 12:29 | P.PN ---
Subjective Principal diagnosis: Pneumonia Patient seen and examined. Per Nursing the patient has been up all day and all night screaming for help and extremely confused. She's been removing her heart monitor. The patient is currently now resting comfortably. Objective - Vital Signs Vital signs: Vital Signs Temp 97.0 F L 08/08/16 01:30 Pulse 64 08/08/16 01:30 Resp 16 08/08/16 01:30 BP 129/89 08/08/16 01:30 Pulse Ox 98 08/08/16 01:30 Intake & Output 08/07/16 08/08/16 08/08/16 18:59 06:59 18:59 Intake Total 840 60 Balance 840 60 Weight 54.1 kg Intake: Oral 840 60 Other: Voiding Method Bedside Commode # Voids 3 2 1 - Exam Gen.: Patient is resting comfortably, confused Cardiovascular: Regular rate and rhythm, S1/S2 Lungs: Coarse breath sounds bilaterally Abdomen: Soft nontender nondistended positive bowel sounds Extremities: No edema - Labs CBC & Chem 7: 08/08/16 07:02 08/08/16 07:02 Labs: Abnormal Lab Results - Last 24 Hours (Table) 08/07/16 08/07/16 08/08/16 Range/Units 16:27 23:56 05:32 RBC (3.80-5.40) m/uL MCV (80.0-100.0) fL Neutrophils # (1.3-7.7) k/uL Lymphocytes # (1.0-4.8) k/uL Sodium (137-145) mmol/L Chloride (98-107) mmol/L Carbon Dioxide (22-30) mmol/L BUN (7-17) mg/dL Creatinine (0.52-1.04) mg/dL Glucose (74-99) mg/dL POC Glucose (mg/dL) 151 H 141 H 145 H (75-99) mg/dL AST (14-36) U/L Total Protein (6.3-8.2) g/dL Albumin (3.5-5.0) g/dL 08/08/16 08/08/16 08/08/16 Range/Units 07:02 07:02 12:02 RBC 3.64 L (3.80-5.40) m/uL MCV 100.3 H (80.0-100.0) fL Neutrophils # 8.8 H (1.3-7.7) k/uL Lymphocytes # 0.3 L (1.0-4.8) k/uL Sodium 146 H (137-145) mmol/L Chloride 115 H (98-107) mmol/L Carbon Dioxide 19 L (22-30) mmol/L BUN 46 H (7-17) mg/dL Creatinine 1.60 H (0.52-1.04) mg/dL Glucose 121 H (74-99) mg/dL POC Glucose (mg/dL) 119 H (75-99) mg/dL AST 53 H (14-36) U/L Total Protein 6.1 L (6.3-8.2) g/dL Albumin 3.0 L (3.5-5.0) g/dL Assessment and Plan Plan: Acute hypoxic respiratory failure Left lower lobe pneumonia Acute exacerbation of COPD Atrial fibrillation with rapid ventricular response, paroxysmal with episodes of bradycardia Hypotension Advanced Dementia NSTEMI Moderate pulmonary retention Acute kidney injury on chronic kidney disease stage IV History of tobacco abuse Steroid-induced hyperglycemia Hypernatremia and hyperchloremia Mild non-anion gap metabolic acidosis O2 to maintain saturation greater than equal to 88% Antibiotics: Vanco, Zosyn Steroid taper Pulmicort GI and DVT Prophylaxis Bronchodilators Pulmonary hygiene Cardiology recommendations Repeat chest x-ray is unchanged Discontinue 0.9 normal saline and start half-normal saline at 75 mL an hour
[2016-08-08] MEDS: VANCOMYCIN 1,250 MG in SODIUM CHLORIDE 0.9% 250 ML IVPB SCH (12:30)
[2016-08-08] MEDS ORDERED: IPRATROPIUM-ALBUTEROL 3 ML NEB INHALATION SCH (13:00)
--- NOTE | 2016-08-08 13:54 | P.DS ---
Providers Date of admission: 08/05/16 18:07 Expected date of discharge: 08/08/16 Attending physician: Bryn Hernandes Consults: 08/05/16 22:34 Consult Physician Routine Consulting Provider: Vidhi Varela Consult Reason/Comments: pneumonia Do you want consulting provider notified?: Yes 08/05/16 22:36 Consult Physician Routine Consulting Provider: Carmen Ren Consult Reason/Comments: afib w rvr Do you want consulting provider notified?: Yes 08/07/16 12:55 Consult Physician Urgent Consulting Provider: Carmen Ren Consult Reason/Comments: elevated heart rate Do you want consulting provider notified?: Yes Primary care physician: [facility]n [facility] Course: And a 89-year-old female was transferred from the [facility] facility via the EMS system from [facility] in [place] aftercare providers noted that the patient was experiencing increased cough change in mental status which was different from baseline. Patient was more confused. Patient emergency room temp was 97.5 patient was initially not tachycardic patient's blood pressure was low 78/51 did receive a liter of IV fluid noted improvement blood pressure was up to 92/46. Is also noted in the emergency room initially the patient was not tachycardic but while in the emergency room heart rate did go up to 140. Twelve-lead EKG did show atrial fibrillation with a rapid ventricular response heart rate documented at 150. The [facility] facility was contacted and they indicated that per advance directives the patient was a no CODE STATUS chest x -ray did show evidence of a left lower lobe pneumonia. Radiologist reviewed the chest x-ray indicated there was an improvement compared to prior x-ray done in May 2016. Patient was started on IV antibiotics and a pulmonary consultation was requested. the patient was treated with IV antibiotics. Patient does have advanced dementia limited mobility does have a legal guardian additionally the patient did have an echocardiogram the EF is between 55 and 60% . There was mild aortic stenosis noted. Initially the patient was seen by cardiology service and in the emergency room given the episode of atrial fibrillation with a rapid ventricular response Cardizem drip was initiated it was stopped secondary to patient having bradycardic rhythms heart rate in the 40s with pauses . Cardiology indicated the abnormal troponin could not rule out acute coronary syndrome but would recommend continuing medical therapy only with no invasive cardiac workup at this time patient was started on a low dose beta karina Lopressor 12.5 twice a day and monitored the Norvasc was stopped patient was rehydrated labs were monitored closely patient was felt not to be a candidate for anticoagulation given the patient's severe dementia with limited mobility increased the risk of falls patient was stabilized and was felt to be appropriate to transfer back to the [facility] facility Pulmonary recommended antibiotics Augmentin 875 twice a day and Levaquin 500 daily for 10 more days Impression discharge diagnosis Present on admission shortness of breath suspect due to left lower lobe pneumonia Present on admission atrial fibrillation with a rapid ventricular response Paroxysmal atrial fibrillation not a candidate for anticoagulation due to increased risk of falls due to severe dementia essential hypertension Abnormal troponin present on admission cannot rule out acute coronary syndrome medical management only Sinus bradycardic episodes Echocardiogram with Doppler study performed in May normal LV systolic function Acute on chronic renal failure stage 4 chronic physical debility limited mobility suspect due to advanced dementia Present on admission acute metabolic encephalopathy different from baseline suspect due to left lobe pneumonia likely community-acquired Present on admission hypotensive systolic pressure in the 70s with heart rate in the 140 Present on admission acute hypoxic respiratory failure suspect due to left lower lobe pneumonia Hypotensive present on admission systolic blood pressure in the 70s multifactorial suspect due to atrial fibrillation with rapid ventricular response with an acute myocardial infarction not ruled out Advance directives indicates patient is a no CODE STATUS Lifelong smoker greater than a 40 year history Emphysema COPD was no evidence of exacerbation Hyperglycemic likely due to episodes steroid-induced The above dictated assessment and findings were discussed with dr hernandes. Impression and the plan of care have been dictated as directed. Umm Oakley nurse practitioner acting as a scribe for dr hernandes. Patient Condition at Discharge: Critical Plan - Discharge Summary New Discharge Prescriptions: Amoxic-Pot Clav 875-125Mg [Augmentin 875-125] 1 tab PO Q12HR #20 tablet Aspirin 81 mg PO DAILY #30 chew Budesonide [Pulmicort] 0.5 mg INHALATION RT-BID #60 nebu Butalb/Asprin/Caff 50-325-40Mg [Fiorinal 50-325-40 MG] 1 cap PO Q24H PRN #30 cap PRN Reason: Migraine Headache Ipratropium-Albuterol Nebulize [Duoneb 0.5 mg-3 mg/3 ml Soln] 3 ml INHALATION RT -TID #120 ampul.neb Levofloxacin [Levaquin] 500 mg PO DAILY #10 tab Metoprolol Tartrate [Lopressor] 12.5 mg PO BID #60 tab Discharge Medication List Acetaminophen Tab [Tylenol] 650 mg PO Q6H PRN 05/21/16 [History] Ascorbic Acid [Vitamin C] 500 mg PO HS 05/21/16 [History] Aspirin EC [Ecotrin Low Dose] 81 mg PO BID@0800,1600 05/21/16 [History] Docusate [Colace] 100 mg PO BID PRN 05/21/16 [History] Famotidine [Pepcid] 20 mg PO HS@199905/21/16 [History] Ferrous Sulfate [Feosol] 325 mg PO HS 05/21/16 [History] Furosemide [Lasix] 20 mg PO DAILY 05/21/16 [History] Gabapentin [Neurontin] 300 mg PO DAILY 05/21/16 [History] Lidocaine [Lidoderm 5% Patch] 1 patch TRANSDERM DAILY 05/21/16 [History] Losartan-Hctz 50-12.5 mg [Hyzaar 50-12.5] 1 tab PO DAILY 05/21/16 [History] Potassium Chloride ER [K-Dur 20] 20 meq PO BID 05/21/16 [History] Sennosides [Senna] 8.6 mg PO DAILY 05/21/16 [History] traZODone HCL 25 mg PO HS@199905/21/16 [History] Dronabinol [Marinol] 2.5 mg PO DAILY 08/05/16 [History] guaiFENesin/CODEINE PHOSPHATE [Cheratussin AC Syrup] 5 ml PO Q4HR PRN 08/05/16 [ History] Amoxic-Pot Clav 875-125Mg [Augmentin 875-125] 1 tab PO Q12HR #20 tablet [Rx] Aspirin 81 mg PO DAILY #30 chew 08/08/16 [Rx] Budesonide [Pulmicort] 0.5 mg INHALATION RT-BID #60 nebu 08/08/16 [Rx] Butalb/Asprin/Caff 50-325-40Mg [Fiorinal 50-325-40 MG] 1 cap PO Q24H PRN #30 cap 08/08/16 [Rx] Ipratropium-Albuterol Nebulize [Duoneb 0.5 mg-3 mg/3 ml Soln] 3 ml INHALATION RT -Q4H PRN #0 ampul.neb 08/08/16 [Rx] Ipratropium-Albuterol Nebulize [Duoneb 0.5 mg-3 mg/3 ml Soln] 3 ml INHALATION RT -TID #120 ampul.neb 08/08/16 [Rx] Levofloxacin [Levaquin] 500 mg PO DAILY #10 tab 08/08/16 [Rx] Metoprolol Tartrate [Lopressor] 12.5 mg PO BID #60 tab 08/08/16 [Rx] Follow up Appointment(s)/Referral(s): Bryn Hernandes MD [Primary Care Provider] - 1-2 days Discharge Disposition: TRANSFER TO SNF/ECF
[2016-08-08 14:18] VITALS: PULSE 102
[2016-08-08 14:54] VITALS: BP 128/93; RESP 19; TEMP 97.8
[2016-08-08] MEDS ORDERED: HEPARIN SODIUM,PORCINE 5,000 UNIT/ML 1 ML VIAL SQ SCH (16:00)
[2016-08-08] MEDS ORDERED: BUDESONIDE 0.5 MG/2 ML NEBU INHALATION SCH (20:00)
[2016-08-08] MEDS ORDERED: methylPREDNISolone SOD SUCCI 40 MG/ML 1 ML VIAL IV SCH (21:00)
== END 2016-08-08 18:40 | DRG 177 ==
LOC: EC 14:39 → 6SEL 18:07 → 3SUR 08-06 18:34
PROVIDERS: ADMIT Family Medicine; ATTEND Family Medicine
DX: J15.6 Pneumonia due to other Gram-negative bacteria (principal); I21.4 Non-ST elevation (NSTEMI) myocardial infarction; J96.01 Acute respiratory failure with hypoxia; N18.4 Chronic kidney disease, stage 4 (severe); N17.9 Acute kidney failure, unspecified; G93.41 Metabolic encephalopathy; I27.2 Other secondary pulmonary hypertension; I13.0 Hypertensive heart and chronic kidney disease with heart failure and stage 1 through stage 4 chronic kidney disease, or unspecified chronic kidney disease; I50.32 Chronic diastolic (congestive) heart failure; J44.0 Chronic obstructive pulmonary disease with (acute) lower respiratory infection; J84.10 Pulmonary fibrosis, unspecified; G30.9 Alzheimer's disease, unspecified; F02.80 Dementia in other diseases classified elsewhere, unspecified severity, without behavioral disturbance, psychotic disturbance, mood disturbance, and anxiety; I48.0 Paroxysmal atrial fibrillation; E78.5 Hyperlipidemia, unspecified; F17.200 Nicotine dependence, unspecified, uncomplicated; I35.0 Nonrheumatic aortic (valve) stenosis; K21.9 Gastro-esophageal reflux disease without esophagitis; M41.9 Scoliosis, unspecified; Z66 Do not resuscitate; Z79.82 Long term (current) use of aspirin; Z79.899 Other long term (current) drug therapy; Z87.01 Personal history of pneumonia (recurrent); Z89.429 Acquired absence of other toe(s), unspecified side; Z91.81 History of falling; Z96.643 Presence of artificial hip joint, bilateral; R73.9 Hyperglycemia, unspecified; T38.0X5A Adverse effect of glucocorticoids and synthetic analogues, initial encounter
CPT/HCPCS: 36415; 71010; 71020; 80053; 80202; 82550; 82553; 83605; 83735; 83880; 84484; 85025; 85610; 85730; 87040; 93005; 93306; 94640; 96365; 96366; 96367; 96375; 96376; 99285